=== PATIENT | male | born 1955 | race Caucasian/White ===

== ENCOUNTER 2023-08-14 13:44 | Inpatient (IN) | payer MEDICARE, SELFPAY ==
[2023-08-14] VITALS (21 sets, daily range): BP systolic 99–183; BP diastolic 69–125; PULSE 96–130; RESP 19–28; TEMP 36.3–36.4; O2SAT 75–100; BMI 17.6
--- NOTE | ~2023-08-14 | CT_ITS ---
EXAMINATION: CTA chest PE protocol DATE: 08/14/2023 16:38 INDICATION: Increasing shortness of breath TECHNIQUE: Computed tomography (CT) pulmonary angiogram of the chest was performed with 100 mL Omnipa que-350 intravenous contrast. Additional 3D reconstructions utilizing coronal maximum intensity proje ction (MIP) were performed. The dose-length product was 248.01 mGy-cm. COMPARISON: None FINDINGS: Excellent contrast opacification of the pulmonary arteries yielding diagnostic quality study with no pulmonary embolism. There is elevation of the left hemidiaphragm. Consolidation in the left lower lob e disproportionate to the mild associated volume loss, likely combination of atelectasis and pneumoni a. Additional consolidation also consistent with atelectasis or pneumonia in the dependent right lowe r lobe. Extensive tree-in-bud opacities throughout the bilateral lower lobes, in the right middle lob e and lingula and portions of the posterior inferior upper lobes consistent with additional pneumonia with endobronchial spread of disease. Small linear band of discoid atelectasis/scarring in the inter segment of the left upper lobe. 6 mm subpleural nodule at the left apex. No pleural effusion. Heart s ize is normal. No pericardial effusion. Thoracic aorta is normal in caliber with no dissection. Mild mediastinal and bilateral hilar lymphadenopathy most prominent in the subcarinal region which most li heber reactive.. 2 cm cyst at the upper pole of the left kidney. Mild thoracic spondylosis with bridgi ng osteophytes at multiple levels consistent with diffuse idiopathic skeletal hyperostosis (DISH). IMPRESSION: 1. No pulmonary embolism. 2. Consolidation in the left lower to lesser degree right lower lobes with more extensive tree-in-bud opacities throughout both lungs consistent with multifocal pneumonia. 3. Elevation of the left hemidiaphragm. 4. 6 mm indeterminate left apical nodule. Recommend 6-12 month follow-up low-dose noncontrast chest C T . 5. Mild mediastinal and bilateral hilar lymphadenopathy which is most likely reactive. Reviewed, dictated and finalized at location A. IMPRESSION: 1. No pulmonary embolism. 2. Consolidation in the left lower to lesser degree right lower lobes with more extensive tree-in-bud opacities throughout both lungs consistent with multifoc al pneumonia. 3. Elevation of the left hemidiaphragm. 4. 6 mm indeterminate left apical nodule. Recommend 6-12 month follow-up low-do se noncontrast chest CT . 5. Mild mediastinal and bilateral hilar lymphadenopathy which is most likely re active.
--- NOTE | ~2023-08-14 | XR_ITS ---
EXAMINATION: XR chest 2V DATE: 08/14/2023 14:25 INDICATION: Shortness of breath TECHNIQUE: frontal and lateral views of the chest were obtained. COMPARISON: None FINDINGS: , Air-fluid level within the stomach underlying the elevated left hemidiaphragm. There airspace opaci ties in the left mid to lower and right lower lung zones consistent with pneumonia and/or pulmonary e phuong. No pneumothorax or pleural effusion. Heart size is normal. Surgical clips at the left apex. Mil d thoracic spondylosis. IMPRESSION: 1. Opacities in the left mid to lower and right lower lung zone which could represent pulmonary edema or pneumonia. 2. Elevation the left hemidiaphragm. Reviewed, dictated and finalized at location A. IMPRESSION: 1. Opacities in the left mid to lower and right lower lung zone which could rep resent pulmonary edema or pneumonia. 2. Elevation the left hemidiaphragm.
--- NOTE | 2023-08-14 13:55 | ECG_ITS ---
Measurements Intervals [place] Rate: 122 P: 20 MD: 92 QRS: 24 QRSD: 89 T: 81 QT: 273 QTc: 390 Interpretive Statements SINUS TACHYCARDIA WITH SHORT MD INTERVAL WITH FREQUENT VENTRICULAR PREMATURE COMPLEXES NONSPECIFIC ST & T-WAVE ABNORMALITY NO PREVIOUS ECG AVAILABLE FOR COMPARISON Electronically Signed On 08-15-2023 13:19:48 CDT by [place] Gross M.D.
[2023-08-14 14:43] LABS: Alveolar/Arterial O2 Gradient 557.5 mmHg; Base Excess ABG 7.4 mEq/l (+/-2.0); Carboxyhemoglobin 0.6 % THb (0-2.0); Fractional Inspired Oxygen 100 %; HCO3 ABG 34.2 mEq/l (22.0-26.0); Methemoglobin ABG 0.4 %THb (0-1.5); Oxygen Content ABG 17.4 %vol (16.0-22.0); Oxygen Saturation ABG 97.2 % (95.0-100.0); Oxyhemoglobin 95.9 % THb (90.0-100.0); PCO2 ABG 58.2 mmHg (35.0-45.0); PO2 ABG 97.3 mmHg (80.0-100.0); PO2 FiO2 Ratio Arterial Blood 0.97 %; Reduced Hemoglobin 3.1 %THb (0-5.0); Total Hemoglobin 12.8 g/dL (12.0-18.0); pH ABG 7.387 (7.350-7.450)
[2023-08-14 14:46] LABS: Device NON-REBREATHER MASK; Site Drawn RIGHT BRACHIAL
--- NOTE | 2023-08-14 14:47 | ED.GENADULT ---
HPI - General Adult General Chief complaint: Shortness of Breath/Dyspnea Stated complaint: SOB, RSV+ Time Seen by Provider: 08/14/23 14:30 History of Present Illness HPI narrative: 67-year-old male presenting to the emergency department for evaluation of increased shortness of breath. Patient is currently at [facility] for RSV. Patient does have a history of smoking but quit in 2007. Over the last few days patient feels that his shortness of breath has worsened. Upon arrival emergency department patient was saturating at 75-96% on 15 L. patient was transitioned to BiPAP and did feel improved. Related Data Home Medications Medication Instructions Recorded Confirmed albuterol sulfate 90 mcg/actuation 2 puff inhalation Q4H PRN Wheezing 08/12/23 08/14/23 aerosol inhaler levothyroxine 112 mcg tablet 112 mcg PO DAILY 08/12/23 08/14/23 metformin 1,000 mg tablet 1,000 mg PO BID 08/12/23 08/14/23 simvastatin 40 mg tablet 40 mg PO DAILY 08/12/23 08/14/23 tadalafil 5 mg tablet 5 mg PO DAILY 08/14/23 08/14/23 Allergies Allergy/AdvReac Type Severity Reaction Status Date / Time No Known Allergies Allergy Verified 08/14/23 14:02 Review of Systems Review of Systems: All systems reviewed & are unremarkable except as noted in HPI and below PMFSH Past Medical History Medical History (Updated 08/15/23 @ 09:41 by Theron Willard MD) Anemia History of throat cancer Family History Family History (Updated 08/14/23 @ 19:56 by Prateek Abarca RN) Mother Breast cancer Father Lung cancer Sibling Breast cancer Social History Social History Smoking packs per day: 2 Smoking cigarettes per day: 40.0 Years smoked: 10 Smoking pack-years: 20.00 Smoking status: Former smoker Tobacco type: cigarettes Alcohol intake: never Substance use: never Substance use type: does not use Do You Feel Safe in your Home?: Yes Lack of Transportation: No Lack of Food: Never True Current Housing: I Have Housing Concerned About Future Housing: No Difficulty Paying Gas/Electric Bills: No Difficulty Paying for Meds: No Currently Unemployed: No Education: Master's Degree or Higher Difficulty w/ Childcare or Family Care: No Spiritual care concerns: No Exam Narrative: APPEARANCE: Well appearing, no pain, no distress, well-nourished. HEAD: normocephalic, atraumatic. EYES: PERRLA/EOMI, conjunctivae clear. NOSE: Normal no drainage EARS:TMS clear with good light reflex. THROAT: Pharynx clear, no exudate. NECK: Supple. No adenopathy, no masses. RESPIRATORY: Wheeze bilateral CARDIOVASCULAR: Regular rate and rhythm without murmurs rubs or gallops. ABDOMINAL: Soft, nontender, nondistended, normal bowel sounds MUSCULOSKELETAL: Moves all extremities. Strength/ROM intact, No edema, No calf tenderness. NEURO: Alert. Cranial nerves II through XII intact. Grossly intact SKIN: Warm, dry. Normal Color Course Vital Signs Vital signs: Vital Signs Temperature 97.5 F L 08/14/23 13:44 Pulse Rate 130 H 08/14/23 13:44 Respiratory Rate 28 H 08/14/23 13:44 Blood Pressure 176/125 H 08/14/23 13:44 Pulse Oximetry 75 L 08/14/23 13:44 Oxygen Delivery Room Air 08/14/23 13:44 Temperature 97.5 F L 08/15/23 11:48 Pulse Rate 105 H 08/15/23 14:41 Respiratory Rate 16 08/15/23 14:41 Blood Pressure 114/74 08/15/23 11:48 Pulse Oximetry 97 08/15/23 12:55 Oxygen Delivery Nasal Cannula 08/15/23 12:55 Oxygen Flow Rate 2 08/15/23 12:55 Fraction of Inspired Oxygen 50 08/14/23 20:00 Medical Decision Making [facility] Narrative Medical decision making narrative: 67-year-old female presenting to the emergency department for evaluation of worsening shortness of breath. On patient's ABG he has a pCO2 58.2. Patient will be placed on BiPAP. CTA PE study was ordered. CT showed no evidence of pulmonary embolism but did show multifoc
[2023-08-14 15:30] LABS: Hematocrit 37.1 % (42.0-52.0); Hemoglobin 11.6 g/dL (14.0-18.0); Mean Corpuscular HGB Conc 31.3 g/dl (32-36); Mean Corpuscular Volume 89.4 fl (80-100); Mean Platelet Volume 8.8 fl (7.4-10.4); Platelet Count Result 541 k/mm3 (150-375); Red Blood Count 4.15 M/mm3 (4.6-6.20); Red Cell Distribution Width 12.7 % (11.5-14.5); White Blood Count 12.6 K/mm3 (4.5-10.0)
[2023-08-14] MEDS: CEFEPIME 2 GM/NS 50 ML 2 GM/50 ML BAG IVPB ×2 (15:45→23:37)
[2023-08-14 15:49] LABS: Alanine Aminotransferase 14 U/L (6-50); Albumin Level 3.5 g/dL (3.5-5.1); Alkaline Phosphatase 70 U/L (38-126); Anion Gap 1 mmol/L (4-12); Aspartate Amino Transferase 29 U/L (17-59); Bilirubin,Total 0.3 mg/dL (0.2-1.3); Blood Urea Nitrogen 15 mg/dL (9-20); Calcium 9.6 mg/dL (8.4-10.2); Carbon Dioxide 36 mmol/L (22-30); Chloride 95 mmol/L (98-107); Estimated CRCL calculation 97 ml/min; Estimated Glomerular Filt Rate > 60; Glucose 196 mg/dL (65-110); Potassium 5.2 mmol/L (3.4-5.0); Sodium 132 mmol/L (137-145)
[2023-08-14 15:57] LABS: Band Neutrophils Percent 7 % (0-6); Lymphocytes Absolute Manual 0.12 K/mm3 (1.1-4.5); Monocytes Percent Manual 4 % (3-9); Neutrophils Absolute Manual 11.97 K/mm3 (1.3-6.7); Neutrophils Percent Manual 88 % (46-73); Nucleated Red Blood Cells 1 %; Platelet Estimate Increased (Adequate); Total Cells Counted 100
[2023-08-14 15:58] LABS: Hypochromasia 1+; Schistocytes None Seen
[2023-08-14] MEDS: VANCOMYCIN 1,500 MG/NS 500 ML 1,500 MG/500 ML BAG 250 MG IVPB (16:45)
[2023-08-14 16:51] LABS: MRSA (PCR) NOT DETECTED (NOT DETECTE)
[2023-08-14] MEDS: ALBUTEROL SULFATE NEB 2.5 MG/3 ML INH INHALATION (19:12)
--- NOTE | 2023-08-14 19:23 | PM.IMHP ---
H&P: HPI History of Present Illness Date/Time: 08/14/23 19:23 Chief Complaint: SOB Narrative: 67 y/o M presents here with SOB with PMH of CVA, throat cancer, sinus tachycardia, and hyperglycemia without diagnosis of diabetes. Patient presented here from [facility] for further evaluation of shortness of breath. Patient was admitted to [facility] 08/11 from [facility] for rehab after having acute hypoxic respiratory failure and severe septic shock due to RSV/aspiration pneumonia. Patient was admitted from 08/04-08/11. Patient reports that he has been short of breath since this diagnosis, however it has worsened over the last few days and then became severe today. Upon arrival to the emergency department, patient was saturating 75-96% on 15 L NRB. reports associated cough that has been dry. No fever, body aches, or chills. No chest pain. No increased fatigue or weakness. No hx of COPD or asthma. reports previous tobacco use, smoking cessation in 2007. Initial VS at presentation: 97.5? F, HR 130, RR 28, 75% on 15L NRB. Now on BiPAP. ED workup showed: WBC 12.6, Hgb 11.6, plt count 541, sodium 132, potassium 5.2, creatinine 0.5 with GFR of >60, glucose 196, and CO2 36. Initial ABG showed pH 7.387, pCO2 58.2, pO2 97.3, HCO3 34.2, O2 sat 97.2%. CXR showed opacities in the left mid to lower and right lower lung zones and elevation in the left hemidiaphragm. CTA of the chest showed no PE, consolidation the left lower to lesser degree right lower lobes with more extensive tree-in-bud opacities throughout both lungs consistent with multifocal pneumonia, elevation of left hemidiaphragm, 6 mm indeterminate left apical nodule, and mild mediastinal and bilateral hilar lymphadenopathy. Review of Systems Review of Systems: All systems reviewed & are unremarkable except as noted in HPI and below [facility] Family History Family History (Updated 08/14/23 @ 19:56 by Prateek Abarca RN) Mother Breast cancer Father Lung cancer Sibling Breast cancer Social History Social History Smoking status: Former smoker Alcohol intake: never Substance use: never Substance use type: does not use Do You Feel Safe in your Home?: Yes Lack of Transportation: No Lack of Food: Never True Current Housing: I Have Housing Concerned About Future Housing: No Difficulty Paying Gas/Electric Bills: No Difficulty Paying for Meds: No Currently Unemployed: No Education: Master's Degree or Higher Difficulty w/ Childcare or Family Care: No Spiritual care concerns: No Meds Home Medications and Allergies Home Medications Medication Instructions Recorded Confirmed Type albuterol sulfate 90 mcg/actuation 2 puff inhalation Q4H PRN Wheezing 08/12/23 08/14/23 History aerosol inhaler empagliflozin 25 mg tablet 25 mg PO DAILY 08/12/23 08/14/23 History (Jardiance) levothyroxine 112 mcg tablet 112 mcg PO DAILY 08/12/23 08/14/23 History metformin 1,000 mg tablet 1,000 mg PO BID 08/12/23 08/14/23 History simvastatin 40 mg tablet 40 mg PO DAILY 08/12/23 08/14/23 History tadalafil 5 mg tablet 5 mg PO DAILY 08/14/23 08/14/23 History Allergies Allergy/AdvReac Type Severity Reaction Status Date / Time No Known Allergies Allergy Verified 08/14/23 14:02 Vital Signs Vital Signs - 24 hr 08/14/23 13:44 08/14/23 13:48 08/14/23 14:00 Temperature 97.5 F L Pulse Rate 130 H Respiratory Rate 28 H Blood Pressure 176/125 H Pulse Oximetry 75 L 97 96 Oxygen Delivery Room Air Non-Rebreather Mask Mechanical Ventilation Oxygen Flow Rate 15 15 08/14/23 14:50 08/14/23 16:40 08/14/23 17:00 Temperature Pulse Rate 123 H 114 H 115 H Respiratory Rate 24 H 24 H 22 H Blood Pressure 130/78 Pulse Oximetry 95 97 98 Oxygen Delivery BiPAP BiPAP Oxygen Flow Rate 08/14/23 16:00 08/14/23 15:00 08/14/23 14:00 Temperature Pulse Rate 12
--- NOTE | 2023-08-14 19:27 | ADMGEN ---
This patient, Jose Maria Fierro, was admitted to IMU Room 200-01. Patient/family oriented to hospital policies and general routines including ID bracelet, bed and alarms, visiting hours, pain management, procedures, bathroom and other care routines, personal items, smoking policy, room service/diet, and visiting hours. Information on how to activate the Rapid Response Team has been discussed. Patient/Family are encouraged to report perceived risks to care and to ask questions if they do not understand what they are told or what they should do.
[2023-08-14] MEDS: IPRATROPIUM 0.5 MG/ALBUTEROL SULFATE 2.5 MG AMPUL.NEB 3 ML INHALATION (20:00)
[2023-08-14] MEDS: methylPREDNISolone SOD SUCC 125 MG VIAL IV PUSH (20:10)
[2023-08-14 20:49] LABS: Influenza A QL RT-PCR Negative (Negative); Influenza B QL RT-PCR Negative (Negative); RSV RNA, RT-PCR Positive (Negative); SARS-CoV-2 RNA PCR Negative (Negative)
[2023-08-14] MEDS: LACTATED RINGERS 1,000 ML 999 ML IV CONT ×2 (22:34→22:35)
[2023-08-14 22:39] LABS: Appearance Urine Clear (Clear); Bilirubin Urine Negative (Negative); Blood Urine Negative (Negative); Color Urine Yellow (Yellow); Glucose Urine UA Negative (Negative); Ketones Urine Negative (Negative); Leukocyte Esterase Ur Negative LEU/UL (Negative); Nitrate Urine Negative (Negative); Protein Urine Negative (Negative); Urobilinogen Urine 0.2 mg/dL (<2.0)
[2023-08-14 22:57] LABS: Add Urine Microscopic? NO; Specific Grav Ur 1.045 (1.001-1.035)
[2023-08-14 23:38] LABS: Base Excess ABG 4.6 mEq/l (+/-2.0); Device NON-INVASIVE VENT; Fractional Inspired Oxygen 50 %; HCO3 ABG 29.7 mEq/l (22.0-26.0); Non-Invasive Expiratory Pressure 6 CMH2O; Non-Invasive Inspiratory Pressure 12 CMH2O; Non-Invasive Vent Rate 14 /MIN; Oxygen Content ABG 15.2 %vol (16.0-22.0); Oxygen Saturation ABG 99.3 % (95.0-100.0); Oxyhemoglobin 97.8 % THb (90.0-100.0); PCO2 ABG 46.4 mmHg (35.0-45.0); PO2 ABG 180.3 mmHg (80.0-100.0); PO2 FiO2 Ratio Arterial Blood 3.61 %; Site Drawn RIGHT BRACHIAL; Total Hemoglobin 10.8 g/dL (12.0-18.0); pH ABG 7.424 (7.350-7.450)
[2023-08-15] VITALS (18 sets, daily range): BP systolic 108–119; BP diastolic 61–74; PULSE 91–109; RESP 16–23; TEMP 36.4–36.6; O2SAT 92–100
[2023-08-15] MEDS: IPRATROPIUM 0.5 MG/ALBUTEROL SULFATE 2.5 MG AMPUL.NEB 3 ML INHALATION ×4 (01:24→20:11)
[2023-08-15 03:59] LABS: Hematocrit 29.6 % (42.0-52.0); Hemoglobin 9.3 g/dL (14.0-18.0); Immature Granulocyte Absolute 0.02 K/mm3 (0.00-0.031); Immature Granulocyte Percent A 0.3 % (0-0.5); Lymphocytes Absolute Auto 0.33 K/mm3 (0.9-3.2); Lymphocytes Percent Auto 4.3 % (18.3-44.2); Mean Corpuscular HGB Conc 31.4 g/dl (32-36); Mean Corpuscular Hemoglobin 27.8 pg (26-34); Mean Corpuscular Volume 88.6 fl (80-100); Mean Platelet Volume 9.2 fl (7.4-10.4); Monocytes Absolute Auto 0.1 K/mm3 (0.1-0.6); Monocytes Percent Auto 0.8 % (2.6-8.5); Neutrophils Absolute Auto 7.3 K/mm3 (1.3-6.7); Neutrophils Percent Auto 94.6 % (45.5-73.1); Platelet Count Result 391 k/mm3 (150-375); Red Blood Count 3.34 M/mm3 (4.6-6.20); Red Cell Distribution Width 12.8 % (11.5-14.5); White Blood Count 7.7 K/mm3 (4.5-10.0)
[2023-08-15 04:08] LABS: Hemoglobin A1C 6.1 % (<5.7)
[2023-08-15 04:15] LABS: Alanine Aminotransferase 11 U/L (6-50); Albumin Level 2.9 g/dL (3.5-5.1); Alkaline Phosphatase 52 U/L (38-126); Anion Gap 0 mmol/L (4-12); Aspartate Amino Transferase 24 U/L (17-59); Bilirubin,Total 0.3 mg/dL (0.2-1.3); Blood Urea Nitrogen 13 mg/dL (9-20); Calcium 9.3 mg/dL (8.4-10.2); Carbon Dioxide 34 mmol/L (22-30); Chloride 98 mmol/L (98-107); Estimated CRCL calculation 92 ml/min; Estimated Glomerular Filt Rate > 60; Glucose 181 mg/dL (65-110); Potassium 4.6 mmol/L (3.4-5.0); Sodium 132 mmol/L (137-145)
[2023-08-15] MEDS: LEVOTHYROXINE SODIUM 112 MCG TABLET PO (05:54)
[2023-08-15] MEDS: CEFEPIME 2 GM/NS 50 ML 2 GM/50 ML BAG IVPB ×3 (09:23→23:25)
[2023-08-15] MEDS: SIMVASTATIN 20 MG TABLET 40 MG PO (09:24)
[2023-08-15] MEDS: PANTOPRAZOLE SODIUM IV 40 MG VIAL IV PUSH (09:24)
--- NOTE | 2023-08-15 09:38 | PM.IMPN ---
Progress Note: A&P Assessment and Plan (1) Multifocal pneumonia: Code(s): J18.9 - Pneumonia, unspecified organism Status: Acute Assessment and Plan: Likely due to RSV Continue cefepime pending blood cultures (2) RSV (respiratory syncytial virus infection): Code(s): B33.8 - Other specified viral diseases Status: Acute Assessment and Plan: Continue supportive care (3) Hyperglycemia: Code(s): R73.9 - Hyperglycemia, unspecified Status: Acute Assessment and Plan: Continue glycemic management (4) History of throat cancer: Code(s): Z85.819 - Personal history of malignant neoplasm of unspecified site of lip, oral cavity, and pharynx Status: Acute Assessment and Plan: Follow-up with PCP as outpatient (5) Anemia: Code(s): D64.9 - Anemia, unspecified Status: Acute Assessment and Plan: Normochromic and normocytic Suspect anemia of chronic disease Evaluate for nutritional deficiency and blood loss (6) Sepsis: Code(s): A41.9 - Sepsis, unspecified organism Status: Acute Assessment and Plan: Resolved 08/14 transfer to medical floor Subjective Date/time seen: 08/15/23 09:38 Interval history: Feels much better. No cough. No shortness of breath or chest pain. On oxygen. Does not wear home oxygen. No GI or complaints. No abnormal bleeding. No weakness or numbness or dizziness. Review of Systems Review of Systems: All systems reviewed & are unremarkable except as noted in HPI and below Exam Narrative: HEENT: PERRL, sclerae nonicteric, pharyngeal mucosa pink and intact NECK: No JVD CHEST: Scattered diffuse fine crackles. Normal effort. HEART: NL S1/S2, regular, no murmur ABDOMEN: BS+, soft, nontender, no mass, no bruits EXTREMITIES: No cyanosis, edema, or clubbing NEUROLOGIC: CN intact and symmetric to inspection. MUSCULOSKELETAL: Tone and strength symmetric. PSYCH: Alert. Oriented to person, place, and time. Objective Data Vital Signs Vital Signs: Vital Signs - 24 hr 08/14/23 13:44 08/14/23 13:48 08/14/23 14:00 Temperature 97.5 F L Pulse Rate 130 H Respiratory Rate 28 H Blood Pressure 176/125 H Pulse Oximetry 75 L 97 96 Oxygen Delivery Room Air Non-Rebreather Mask Mechanical Ventilation Oxygen Flow Rate 15 15 Fraction of Inspired Oxygen 08/14/23 14:50 08/14/23 16:40 08/14/23 17:00 Temperature Pulse Rate 123 H 114 H 115 H Respiratory Rate 24 H 24 H 22 H Blood Pressure 130/78 Pulse Oximetry 95 97 98 Oxygen Delivery BiPAP BiPAP Oxygen Flow Rate Fraction of Inspired Oxygen 08/14/23 16:00 08/14/23 15:00 08/14/23 14:00 Temperature Pulse Rate 121 H 121 H 124 H Respiratory Rate 20 22 H 22 H Blood Pressure 146/94 H 166/87 H 183/116 H Pulse Oximetry 96 94 97 Oxygen Delivery Oxygen Flow Rate Fraction of Inspired Oxygen 08/14/23 18:15 08/14/23 17:26 08/14/23 17:31 Temperature Pulse Rate 98 108 H 107 H Respiratory Rate 20 23 H 25 H Blood Pressure 103/74 99/72 L 114/86 Pulse Oximetry 99 99 99 Oxygen Delivery Oxygen Flow Rate Fraction of Inspired Oxygen 08/14/23 18:30 08/14/23 18:45 08/14/23 19:32 Temperature 97.4 F L Pulse Rate 96 101 H 104 H Respiratory Rate 19 20 24 H Blood Pressure 122/75 124/82 115/69 Pulse Oximetry 98 99 100 Oxygen Delivery Oxygen Flow Rate Fraction of Inspired Oxygen 08/14/23 19:10 08/14/23 19:12 08/14/23 19:20 Temperature Pulse Rate 99 99 101 H Respiratory Rate 25 H 25 H 25 H Blood Pressure Pulse Oximetry 100 Oxygen Delivery BiPAP Oxygen Flow Rate Fraction of Inspired Oxygen 08/14/23 20:00 08/14/23 20:00 08/14/23 22:00 Temperature Pulse Rate 104 H 106 H 102 H Respiratory Rate 24 H Blood Pressure Pulse Oximetry 100 Oxygen Delivery BiPAP Oxygen Flow Rate Fraction of Inspired Oxygen 50 08/14/23 23:47 08/15/23 00:00 0
[2023-08-15 12:03] LABS: Glucose Point of Care 152 mg/dl (65-105)
--- NOTE | 2023-08-15 12:09 | PC.NURSE ---
This patient, Jose Maria Fierro, was transferred to [[id number] ] on 08/15/23 at 1209. Personal belongings sent with patient. Report given to [Annamarie ALEJANDRA ]. Appropriate documentation sent with patient.
[2023-08-15 17:05] LABS: Glucose Point of Care 101 mg/dl (65-105)
[2023-08-15 20:29] LABS: Glucose Point of Care 134 mg/dl (65-105)
[2023-08-16] VITALS (14 sets, daily range): BP systolic 118–155; BP diastolic 57–82; PULSE 87–104; RESP 16–20; TEMP 36.8; O2SAT 93–96
[2023-08-16] MEDS: traZODone HCL 50 MG TABLET PO ×2 (00:29→20:41)
[2023-08-16] MEDS: IPRATROPIUM 0.5 MG/ALBUTEROL SULFATE 2.5 MG AMPUL.NEB 3 ML INHALATION ×4 (03:45→20:48)
[2023-08-16 05:08] LABS: Immature Reticulocyte Fraction 10.4 % (3.0-15.9); Reticulocyte Hemoglobin Conten 31.9 pg (28.2-36.6); Reticulocyte Percent 0.75 % (0.7-4.3); Reticulocytes Absolute 0.03 10^6/uL (0.02-0.10)
[2023-08-16 05:21] LABS: Iron < 10 ug/dL (49-181)
[2023-08-16 05:44] LABS: Percent Iron Saturation < 5 % (20-50)
[2023-08-16 06:23] LABS: Folic Acid 2.5 ng/mL (2.76->20)
[2023-08-16] MEDS: LEVOTHYROXINE SODIUM 112 MCG TABLET PO (06:41)
[2023-08-16 08:44] LABS: Glucose Point of Care 105 mg/dl (65-105)
[2023-08-16] MEDS: PANTOPRAZOLE SODIUM IV 40 MG VIAL IV PUSH (09:12)
[2023-08-16] MEDS: SIMVASTATIN 20 MG TABLET 40 MG PO (09:12)
[2023-08-16] MEDS: CEFEPIME 2 GM/NS 50 ML 2 GM/50 ML BAG IVPB ×2 (09:13→16:09)
[2023-08-16 14:44] LABS: Glucose Point of Care 134 mg/dl (65-105)
--- NOTE | 2023-08-16 16:41 | PM.IMPN ---
Progress Note: A&P Assessment and Plan (1) Multifocal pneumonia: Code(s): J18.9 - Pneumonia, unspecified organism Status: Acute Assessment and Plan: Likely due to RSV Continue cefepime pending blood cultures and procalcitonin (2) RSV (respiratory syncytial virus infection): Code(s): B33.8 - Other specified viral diseases Status: Acute Assessment and Plan: Improving Continue supportive care (3) Hyperglycemia: Code(s): R73.9 - Hyperglycemia, unspecified Status: Acute Assessment and Plan: Continue glycemic monitoring A1c pending (4) History of throat cancer: Code(s): Z85.819 - Personal history of malignant neoplasm of unspecified site of lip, oral cavity, and pharynx Status: Acute Assessment and Plan: Follow-up with PCP as outpatient (5) Anemia: Code(s): D64.9 - Anemia, unspecified Status: Acute Assessment and Plan: Normochromic and normocytic Iron, %sat very low, TIBC low, Folic acid low Stool for occult blood pending 08/15 started iron, folic acid supplements (6) Sepsis: Code(s): A41.9 - Sepsis, unspecified organism Status: Acute Assessment and Plan: Resolved 08/14 transfer to medical floor Subjective Date/time seen: 08/16/23 16:41 Interval history: Less dyspneic. Cough with brown to clear sputum. Tolerating diet. Review of Systems Review of Systems: All systems reviewed & are unremarkable except as noted in HPI and below Exam Narrative: HEENT: PERRL, sclerae nonicteric, pharyngeal mucosa pink and intact NECK: No JVD CHEST: Minimal scattered fine crackles. Normal effort. HEART: NL S1/S2, regular, no murmur ABDOMEN: BS+, soft, nontender, no mass, no bruits EXTREMITIES: No cyanosis, edema, or clubbing NEUROLOGIC: CN intact and symmetric to inspection. MUSCULOSKELETAL: Tone and strength symmetric. PSYCH: Alert. Oriented to person, place, and time. Objective Data Vital Signs Vital Signs: Vital Signs - 24 hr 08/15/23 20:20 08/15/23 20:11 08/15/23 20:11 Temperature Pulse Rate 100 92 Respiratory Rate 18 18 Blood Pressure Pulse Oximetry 92 Oxygen Delivery Nasal Cannula Oxygen Flow Rate 2 08/15/23 20:00 08/16/23 00:00 08/16/23 03:45 Temperature 98.3 F Pulse Rate 93 87 Respiratory Rate 18 18 Blood Pressure 121/57 L Pulse Oximetry 92 93 Oxygen Delivery Nasal Cannula Oxygen Flow Rate 2 08/16/23 03:55 08/16/23 08:00 08/16/23 08:00 Temperature Pulse Rate 89 87 87 Respiratory Rate 18 18 18 Blood Pressure Pulse Oximetry 94 Oxygen Delivery Nasal Cannula Oxygen Flow Rate 2 08/16/23 08:10 08/16/23 08:48 08/16/23 09:11 Temperature Pulse Rate 88 Respiratory Rate 18 Blood Pressure Pulse Oximetry 94 Oxygen Delivery Nasal Cannula Nasal Cannula Oxygen Flow Rate 1 2 08/16/23 13:41 08/16/23 13:59 08/16/23 14:11 Temperature 98.2 F Pulse Rate 104 H 100 97 Respiratory Rate 20 16 16 Blood Pressure 155/82 H Pulse Oximetry 94 Oxygen Delivery Oxygen Flow Rate Intake/Output Intake/Output: Intake & Output 08/13/23 08/14/23 08/15/23 08/16/23 23:59 23:59 23:59 23:59 Intake Total 2550 1990 770 Output Total 500 1075 774 Balance 2050 915 -4 Meds/Results Medications: Active Medications Generic Name Dose Route Start Last Admin Trade Name Freq PRN Reason Stop Dose Admin Albuterol/Ipratropium 3 ml 08/14/23 20:00 08/16/23 13:58 Ipratropium 0.5 Mg/Albuterol Sulfate 2.5 Mg Ampul.Neb 3 Ml INHALATION 3 ml Q6HRT JAUN Administration Cefepime HCl 2 gm in 50 mls @ 100 mls/hr 08/15/23 00:00 08/16/23 16:09 Maxipime 2 Gm/Ns 50 Ml IVPB 100 mls/hr Q8H JAUN Administration Levothyroxine Sodium 112 mcg 08/15/23 06:30 08/16/23 06:41 Levothyroxine Sodium 112 Mcg Tablet PO 112 mcg DAILY@0630 JAUN Administration Pantoprazole Sodium 40 mg 08/15/23 09:00 08/16/23 09
[2023-08-16 17:15] LABS: Glucose Point of Care 134 mg/dl (65-105)
[2023-08-16 20:41] LABS: Glucose Point of Care 136 mg/dl (65-105)
[2023-08-17] VITALS (9 sets, daily range): BP systolic 123–146; BP diastolic 61–82; PULSE 90–115; RESP 16–18; TEMP 36.3–36.6; O2SAT 93–96; BMI 16.0
[2023-08-17] MEDS: CEFEPIME 2 GM/NS 50 ML 2 GM/50 ML BAG IVPB ×2 (01:03→09:51)
[2023-08-17] MEDS: IPRATROPIUM 0.5 MG/ALBUTEROL SULFATE 2.5 MG AMPUL.NEB 3 ML INHALATION ×3 (02:30→13:39)
[2023-08-17 05:44] LABS: Hematocrit 32.1 % (42.0-52.0); Hemoglobin 9.9 g/dL (14.0-18.0); Mean Corpuscular HGB Conc 30.8 g/dl (32-36); Mean Corpuscular Volume 90.7 fl (80-100); Mean Platelet Volume 8.8 fl (7.4-10.4); Platelet Count Result 384 k/mm3 (150-375); Red Blood Count 3.54 M/mm3 (4.6-6.20); Red Cell Distribution Width 12.8 % (11.5-14.5); White Blood Count 9.3 K/mm3 (4.5-10.0)
[2023-08-17 05:50] LABS: Anion Gap -2 mmol/L (4-12); Blood Urea Nitrogen 8 mg/dL (9-20); Calcium 8.6 mg/dL (8.4-10.2); Carbon Dioxide 38 mmol/L (22-30); Chloride 98 mmol/L (98-107); Estimated CRCL calculation 82 ml/min; Estimated Glomerular Filt Rate > 60; Glucose 110 mg/dL (65-110); Potassium 4.2 mmol/L (3.4-5.0); Sodium 134 mmol/L (137-145)
[2023-08-17 05:53] LABS: Hemoglobin A1C 6.1 % (<5.7)
[2023-08-17 06:19] LABS: Procalcitonin 0.1 ng/mL
[2023-08-17] MEDS: LEVOTHYROXINE SODIUM 112 MCG TABLET PO (06:29)
[2023-08-17 08:15] LABS: Glucose Point of Care 100 mg/dl (65-105)
[2023-08-17] MEDS: FERROUS SULFATE 325 MG TABLET DR PO (09:53)
[2023-08-17] MEDS: SIMVASTATIN 20 MG TABLET 40 MG PO (09:53)
[2023-08-17] MEDS: FOLIC ACID 1 MG TABLET PO (09:53)
[2023-08-17] MEDS: PANTOPRAZOLE SODIUM IV 40 MG VIAL IV PUSH (09:54)
[2023-08-17 12:09] LABS: Glucose Point of Care 167 mg/dl (65-105)
[2023-08-17 21:44] LABS: Pneumococcal Antigen Urine Not Detected (Not Detected)
--- NOTE | 2023-08-17 22:16 | P.DS_ITS ---
DS: Admitting Diagnosis Discharge Date 08/17/23 Admitting Diagnosis RSV, acute hypoxic respiratory failure DS: Discharge Diagnosis Discharge Diagnosis Plan supportive care for RSV, no ABx required DS: Summary Hospital Course Reason for hospitalization: Dyspnea Hospital Course: Patient is a 67 y/o male with PMHx throat cancer, h/o CVA, sinus tachycardia who presents from [facility] with SOB. He recently was treated at [facility] for septic shock from RSV and aspiration pneumonia from 08/04-08/11, subsequently went to [facility] for rehab. He then developed worsening dyspnea and requireted 15L NRB prompting him to come to [facility] for further treatment. He was treated with supportive care for RSV.? He was on a 3 days of cefepime but had no bacterial findings on cultures. Also with the negative procalcitonin, there was no further requirements to treat with ABx. He was weaned to 2L O2 by [place]. He continued to work with physical therapy. He was hospitalized from 08/13-08/16. At time of discharge his labs are stable, vitals stable, his is stable to discharge back to [facility] for further therapy. He will f/u with PCP in 1 week. He needs f.u CT scan for the left apical lung nodule. He understands and agrees with the plan. Status at Discharge Cognitive/behavioral status at discharge: baseline Time Spent with Patient Time attestation: Total time spent providing and/or coordinating discharge services: 40 min Exam Narrative: - GENERAL: Pleasant frail shelley in no ac lumbee distress. - EYES: EOMI. Anicteric. - HENT: Moist mucous membranes. - LUNGS: Clear to auscultation bilateral ly, no wheezing, rhonchi, or rales. breathing comfortably on 2L O2 by NC - CARDIOVASCULAR: Regular rate and rhyth m. No murmur. No JVD. - ABDOMEN: Soft, non-tender and non-dist ended. No palpable masses. - EXTREMITIES: No edema. Peripheral puls es 2+. Non-tender. - NEUROLOGIC: No focal neurological defi cits. CN II-XII grossly intact. - PSYCHIATRIC: Awake, Alert and oriented x 3. Appropriate mood and affect. - SKIN: No rashes or lesions. Warm. - LYMPH: No cervical lymphadenopathy. DS: Data Data Completed and Pending Labs on day of discharge: Labs from last 24 hours 08/17/23 08/17/2308/16/24 12:06 08:12 05:29 WBC 9.3 RBC 3.54 L Hgb 9.9 L Hct 32.1 L MCV 90.7 MCH 28.0 MCHC 30.8 L RDW 12.8 Plt Count 384 H MPV 8.8 Sodium 134 L Potassium 4.2 Chloride 98 Carbon Dioxide 38 H Anion Gap -2 L BUN 8 L D Creatinine 0.50 L Estim Creat Clear Calc 82 Estimated GFR > 60 Glucose 110 POC Capillary Glucose 167 H 100 Hemoglobin A1c 6.1 H Calcium 8.6 Procalcitonin 0.1 Urine Pneumococcal Ag 08/14/23 22:33 WBC RBC Hgb Hct MCV MCH MCHC
--- NOTE | 2023-08-17 22:16 | PM.DS ---
DS: Admitting Diagnosis Discharge Date 08/17/23 Admitting Diagnosis RSV, acute hypoxic respiratory failure DS: Discharge Diagnosis Discharge Diagnosis Plan supportive care for RSV, no ABx required DS: Summary Hospital Course Reason for hospitalization: Dyspnea Hospital Course: Patient is a 67 y/o male with PMHx throat cancer, h/o CVA, sinus tachycardia who presents from [facility] with SOB. He recently was treated at [facility] for septic shock from RSV and aspiration pneumonia from 08/04-08/11, subsequently went to [facility] for rehab. He then developed worsening dyspnea and requireted 15L NRB prompting him to come to [facility] for further treatment. He was treated with supportive care for RSV.? He was on a 3 days of cefepime but had no bacterial findings on cultures. Also with the negative procalcitonin, there was no further requirements to treat with ABx. He was weaned to 2L O2 by UT. He continued to work with physical therapy. He was hospitalized from 08/13-08/16. At time of discharge his labs are stable, vitals stable, his is stable to discharge back to [facility] for further therapy. He will f/u with PCP in 1 week. He needs f.u CT scan for the left apical lung nodule. He understands and agrees with the plan. Status at Discharge Cognitive/behavioral status at discharge: baseline Time Spent with Patient Time attestation: Total time spent providing and/or coordinating discharge services: 40 min Exam Narrative: - GENERAL: Pleasant frail shelley in no acute distress. - EYES: EOMI. Anicteric. - HENT: Moist mucous membranes. - LUNGS: Clear to auscultation bilaterally, no wheezing, rhonchi, or rales. breathing comfortably on 2L O2 by NC - CARDIOVASCULAR: Regular rate and rhythm. No murmur. No JVD. - ABDOMEN: Soft, non-tender and non-distended. No palpable masses. - EXTREMITIES: No edema. Peripheral pulses 2+. Non-tender. - NEUROLOGIC: No focal neurological deficits. CN II-XII grossly intact. - PSYCHIATRIC: Awake, Alert and oriented x 3. Appropriate mood and affect. - SKIN: No rashes or lesions. Warm. - LYMPH: No cervical lymphadenopathy. DS: Data Data Completed and Pending Labs on day of discharge: Labs from last 24 hours 08/17/23 08/17/23 08/17/23 12:06 08:12 05:29 WBC 9.3 RBC 3.54 L Hgb 9.9 L Hct 32.1 L MCV 90.7 MCH 28.0 MCHC 30.8 L RDW 12.8 Plt Count 384 H MPV 8.8 Sodium 134 L Potassium 4.2 Chloride 98 Carbon Dioxide 38 H Anion Gap -2 L BUN 8 L D Creatinine 0.50 L Estim Creat Clear Calc 82 Estimated GFR > 60 Glucose 110 POC Capillary Glucose 167 H 100 Hemoglobin A1c 6.1 H Calcium 8.6 Procalcitonin 0.1 Urine Pneumococcal Ag 08/14/23 22:33 WBC RBC Hgb Hct MCV MCH MCHC RDW Plt Count MPV Sodium Potassium Chloride Carbon Dioxide Anion Gap BUN Creatinine Estim Creat Clear Calc Estimated GFR Glucose POC Capillary Glucose Hemoglobin A1c Calcium Procalcitonin Urine Pneumococcal Ag Not detected Preliminary micro results at discharge 08/15/23 09:41 Sputum Culture - Preliminary Sputum 08/14/23 15:34 Blood Culture - Preliminary Blood 08/14/23 15:32 Blood Culture - Preliminary Blood Imaging Radiologist's impression: CTA chest 08/14/23 IMPRESSION: 1. No pulmonary embolism. 2. Consolidation in the left lower to lesser degree right lower lobes with more extensive tree-in-bud opacities throughout both lungs consistent with multifocal pneumonia. 3. Elevation of the left hemidiaphragm. 4. 6 mm indeterminate left apical nodule. Recommend 6-12 month follow-up low-dose noncontrast chest CT . 5. Mild mediastinal and bilateral hilar lymphadenopathy which is most likely reactive. Discharge Plan Discharge Attending physician on discharge: Dann Webb Discharging Clinician: Dann Webb Anticipated Discharge Date/Time: 08/17/23 11:05 Patient Dis
[2023-08-18 03:28] LABS: Legionella pneumophila Ag Ur Not Detected (Not Detected)
[2023-08-18 14:31] LABS: Mycoplasma IgM Antibody Titer 91 U/mL (<770)
== END 2023-08-17 15:25 | DRG 193 ==
LOC: ANHED 14:57 → ANHIMU 18:16 → ANH2MED 08-15 11:58
PROVIDERS: Emergency Medicine; Internal Medicine; Student in an Organized Health Care Education/Training Program; Admitting Provider Internal Medicine; Emergency Provider Emergency Medicine; Visit Provider Student in an Organized Health Care Education/Training Program
DX: J12.1 Respiratory syncytial virus pneumonia (principal); J96.01 Acute respiratory failure with hypoxia; Z20.822 Contact with and (suspected) exposure to COVID-19; R73.9 Hyperglycemia, unspecified; D64.9 Anemia, unspecified; D63.8 Anemia in other chronic diseases classified elsewhere; Z85.818 Personal history of malignant neoplasm of other sites of lip, oral cavity, and pharynx; Z87.891 Personal history of nicotine dependence; Z86.73 Personal history of transient ischemic attack (TIA), and cerebral infarction without residual deficits
CPT/HCPCS: 36415; 36600; 71046; 71275; 80048; 80053; 81003; 82375; 82607; 82746; 82805; 82948; 83036; 83050; 83540; 83550; 83605; 84145; 84443; 85025; 85027; 85046; 86140; 86738; 87040; 87070; 87205; 87449; 87637; 87641; 87899; 93005; 94640; 96365; 96367; 97110; 97116; 97161; 97165; 97530; 99285; A9270; C9113; J0692; J2919; J3370; J7120; Q9967

== ENCOUNTER 2023-08-22 19:46 | Inpatient (IN) | payer MEDICARE, SELFPAY ==
[2023-08-22] VITALS (25 sets, daily range): BP systolic 91–183; BP diastolic 52–119; PULSE 96–127; RESP 16–36; TEMP 36.6–36.8; O2SAT 95–100; BMI 16.6
--- NOTE | ~2023-08-22 | CT_ITS ---
Clinical Indication: Hypoxia CT Scan of the Chest with Contrast: Technique: Contiguous sections were acquired throughout the chest after intravenous administration of 100 cc of Omnipaque 350. Dose reduction technique was used on this scan by utilizing automated expos ure control and iterative reconstruction technique. The dose-length product (DLP) was 168.21 mGy-cm. COMPARISON: 08/14/2023 Findings: There is no evidence of any significant mediastinal, hilar or axillary lymphadenopathy. There is no f illing defect in the pulmonary arterial tree to suggest pulmonary embolus. There is no evidence of ao rtic dissection or aneurysm. There is no evidence of pleural or pericardial effusion. Very small left apical pneumothorax present. There is dense lobar consolidation left lower lobe with volume loss, compatible with a combination of pneumonia and atelectasis. There are diffuse tree-in-bu d opacities throughout the lungs, certainly more extensive in the right upper lobe as compared to sunitha or exam in particular. Irregular nodular consolidation or density in the left upper lobe is slightly more prominent, possibly due to slice selection, measuring 2 cm in diameter (axial image 48). Images through the upper abdomen reveal calcified gallstones. Impression: No evidence of pulmonary embolus, aortic dissection, or aortic aneurysm. Very small left apical pneumothorax. Dense, lobar consolidation of the left lower lobe with volume loss, compatible with combination of pn eumonia and atelectasis. Diffuse tree-in-bud opacities throughout the remainder of the lungs, worsened from prior exam, compat ible diffuse small airways infectious process. 2 cm irregular consolidation left upper lobe is slightly more prominent, possibly due to plane of jeana ging. This could reflect focal more confluent pneumonia, however neoplasm not completely excluded. Reviewed, dictated and finalized at [facility]. Impression: No evidence of pulmonary embolus, aortic dissection, or aortic aneurysm. Very small left apical pneumothorax. Dense, lobar consolidation of the left lower lobe with volume loss, compatible with combination of pneumonia and atelectasis. Diffuse tree-in-bud opacities throughout the remainder of the lungs, worsened f rom prior exam, compatible diffuse small airways infectious process. 2 cm irregular consolidation left upper lobe is slightly more prominent, possib ly due to plane of imaging. This could reflect focal more confluent pneumonia, however neoplasm not completely excluded.
--- NOTE | ~2023-08-22 | XR_ITS ---
EXAMINATION: XR chest 2V DATE: 08/27/2023 18:37 INDICATION: Shortness of breath. TECHNIQUE: Frontal and lateral views of the chest were obtained. COMPARISON: Chest single view 08/27/23, chest CT 08/27/23 FINDINGS: There are widespread nodules in the lungs bilaterally. There are airspace opacities with vo lume loss involving left lower lobe. No pleural effusion or pneumothorax. The heart size is normal. T here is a small left pneumothorax. IMPRESSION: 1. Stable small left pneumothorax. 2. Multifocal pneumonia. 3. Left lung lower lobe collapse. Reviewed, dictated and finalized at location E.
--- NOTE | ~2023-08-22 | XR_ITS ---
EXAMINATION: XR chest 1V portable DATE: 08/27/2023 13:04 INDICATION: Hypoxia TECHNIQUE: frontal view of the chest was obtained. COMPARISON: Chest radiograph dated 08/24/2023 FINDINGS: Again seen is a diffuse increased interstitial and groundglass opacities throughout both lungs relati vely sparing the apices of a few peripheral David B-lines at the lateral right lower lung zone most consistent with mild pulmonary edema. Unchanged elevation of the left hemidiaphragm. No pneumothorax or definitive pleural effusion. Heart size is normal. Couple surgical clips project over the left ape x. IMPRESSION: 1. No significant change in bilateral diffuse interstitial and groundglass opacities relatively spari ng the apices which could represent pulmonary edema and/or pneumonia. Reviewed, dictated and finalized at location A. IMPRESSION: 1. No significant change in bilateral diffuse interstitial and groundglass opac ities relatively sparing the apices which could represent pulmonary edema and/o r pneumonia.
--- NOTE | ~2023-08-22 | XR_ITS ---
EXAMINATION: XR chest 2V DATE: 08/22/2023 20:17 INDICATION: Dyspnea. TECHNIQUE: Frontal and lateral views of the chest were obtained. COMPARISON: Chest 2 views 08/14/2023, chest CT 08/14/2023 FINDINGS: Again seen is elevation of left hemidiaphragm. There are nodules in the mid and lower lung zones. There are airspace opacities at left lung base. No pleural effusion or pneumothorax. The heart size is normal. There are surgical clips in left neck. IMPRESSION: 1. Stable nodules in the mid and lower lung zones and airspace opacities at left lung base, consisten t with pneumonia. Reviewed, dictated and finalized at location E. IMPRESSION: 1. Stable nodules in the mid and lower lung zones and airspace opacities at lef t lung base, consistent with pneumonia.
--- NOTE | ~2023-08-22 | XR_ITS ---
Clinical Indication: Pneumonia AP and lateral views of the chest: Comparison: 08/22/2023 Findings: Hazy bilateral lower lobe airspace disease is mildly improved from prior exam.. Cardiomedi astinal silhouette is within normal limits. Bones and soft tissues are unremarkable. Impression: Improving bilateral lower lobe pneumonia versus pulmonary edema. Reviewed, dictated and finalized at [facility]. Impression: Improving bilateral lower lobe pneumonia versus pulmonary edema.
--- NOTE | 2023-08-22 19:39 | ED.GENADULT ---
HPI - General Adult General Chief complaint: Shortness of Breath/Dyspnea Stated complaint: sob History of Present Illness HPI narrative: 67-year-old male presents from a rehab facility because of progressively increasing oxygen requirements. Patient was diagnosed with RSV on the which is 16 days prior to arrival. He was sent to the rehab facility because of oxygen needs which have been progressively worsening. Patient required 25 L of high-flow nasal cannula to maintain O2 saturation above 90%. He denies fever or chest pain. Related Data Home Medications Medication Instructions Recorded Confirmed albuterol sulfate 90 mcg/actuation 2 puff inhalation Q4H PRN Wheezing 08/12/23 08/17/23 aerosol inhaler levothyroxine 112 mcg tablet 112 mcg PO DAILY 08/12/23 08/17/23 metformin 1,000 mg tablet 1,000 mg PO BID 08/12/23 08/17/23 simvastatin 40 mg tablet 40 mg PO DAILY 08/12/23 08/17/23 tadalafil 5 mg tablet 5 mg PO DAILY 08/14/23 08/17/23 Allergies Allergy/AdvReac Type Severity Reaction Status Date / Time No Known Allergies Allergy Verified 08/22/23 19:53 Review of Systems Review of Systems: CONSTITUTIONAL: Denies fever, chills, or sweats. EYES: Denies visual changes, redness, or discharge. ENT: Denies rhinorrhea, congestion, sore throat, or otalgia. CARDIOVASCULAR: Denies chest pain, palpitations, or edema. RESPIRATORY: Denies cough or dyspnea. GASTROINTESTINAL: Denies abdominal pain, nausea, vomiting, or diarrhea. GENITOURINARY: Denies dysuria or hematuria. SKIN: Denies rash or itching. MUSCULOSKELETAL: Denies back pain, joint pain, or myalgia. NEUROLOGIC: Denies headache, numbness, or weakness. PSYCHIATRIC: Denies anxiety or depression. [facility] Past Medical History Medical History (Updated 08/22/23 @ 21:48 by Matthew Aparicio DO) Anemia Former smoker History of throat cancer Protein calorie malnutrition Family History Family History Mother Breast cancer Father Lung cancer Sibling Breast cancer Social History Social History Smoking packs per day: 2 Smoking cigarettes per day: 40.0 Years smoked: 10 Smoking pack-years: 20.00 Smoking status: Former smoker Tobacco type: cigarettes Alcohol intake: never Substance use: never Substance use type: does not use Do You Feel Safe in your Home?: Yes Lack of Transportation: No Lack of Food: Never True Current Housing: I Have Housing Concerned About Future Housing: No Difficulty Paying Gas/Electric Bills: No Difficulty Paying for Meds: No Currently Unemployed: No Education: Master's Degree or Higher Difficulty w/ Childcare or Family Care: No Living arrangements: alone Occupation/Education: occupation Gender identity (if verbalized by the patient): Male Sexual Orientation (if Verbalized by the Patient): Straight or Heterosexual Spiritual care concerns: No Exam Narrative: GENERAL: Well-appearing, well-nourished, and in no acute distress. HEAD: Normocephalic, atraumatic. EYES: PERRLA and EOMI. ENT: Nares clear, no rhinorrhea or epistaxis. Mucous membranes moist. NECK: Supple. CHEST: Rales and rhonchi in all webber, tachypnea. HEART: Regular rate and rhythm. No murmur heard. Normal peripheral pulses. ABDOMEN: Soft, nontender, nondistended, normal active bowel sounds. EXTREMITIES: Normal range of motion. No edema. SKIN: Warm, dry, no rash. NEURO: No focal deficits. Alert and oriented x3. PSYCH: Normal mood and affect. Course Vital Signs Vital signs: Vital Signs Temperature 97.9 F 08/22/23 19:45 Pulse Rate 121 H 08/22/23 19:45 Respiratory Rate 31 H 08/22/23 19:45 Blood Pressure 183/84 H 08/22/23 19:45 Pulse Oximetry 99 08/22/23 19:45 Oxygen Delivery High Flow Therapy with Na 08/22/23 19:45 Oxygen Flow Rate 15 08/22/23 19:45 Temperature 97.9 F 08/22/23 1
--- NOTE | 2023-08-22 19:56 | ECG_ITS ---
SEE SCANNED COPY FOR CONFIRMED REPORT MTDD
[2023-08-22 20:18] LABS: Basophils Percent Auto 0.2 % (0.2-1.2); Eosinophils Percent Auto 0.2 % (0-4.4); Hematocrit 38.1 % (42.0-52.0); Hemoglobin 11.8 g/dL (14.0-18.0); Immature Granulocyte Absolute 0.05 K/mm3 (0.00-0.031); Immature Granulocyte Percent A 0.4 % (0-0.5); Lymphocytes Absolute Auto 0.44 K/mm3 (0.9-3.2); Lymphocytes Percent Auto 3.5 % (18.3-44.2); Mean Corpuscular Hemoglobin 27.7 pg (26-34); Mean Corpuscular Volume 89.4 fl (80-100); Monocytes Absolute Auto 0.9 K/mm3 (0.1-0.6); Monocytes Percent Auto 7.2 % (2.6-8.5); Neutrophils Absolute Auto 11.2 K/mm3 (1.3-6.7); Neutrophils Percent Auto 88.5 % (45.5-73.1); Platelet Count Result 634 k/mm3 (150-375); Red Blood Count 4.26 M/mm3 (4.6-6.20); Red Cell Distribution Width 13.2 % (11.5-14.5); White Blood Count 12.7 K/mm3 (4.5-10.0)
[2023-08-22 20:33] LABS: Anion Gap 2 mmol/L (4-12); Blood Urea Nitrogen 19 mg/dL (9-20); Calcium 9.8 mg/dL (8.4-10.2); Carbon Dioxide 37 mmol/L (22-30); Chloride 95 mmol/L (98-107); Estimated CRCL calculation 102 ml/min; Estimated Glomerular Filt Rate > 60; Glucose 201 mg/dL (65-110); Sodium 134 mmol/L (137-145)
[2023-08-22 20:44] LABS: Troponin I < 0.012 ng/mL (0.000-0.034)
--- NOTE | 2023-08-22 20:44 | PC.NURSE ---
ED respiratory in room with patient to do breathing treatment and switch patient to more comfortable high flow NC.
[2023-08-22] MEDS: IPRATROPIUM 0.5 MG/ALBUTEROL SULFATE 2.5 MG AMPUL.NEB 3 ML INHALATION (20:46)
--- NOTE | 2023-08-22 21:09 | PC.NURSE ---
Patient being switched to BIPAP by ED respiratory.
[2023-08-22 21:58] LABS: Alveolar/Arterial O2 Gradient 288.8 mmHg; Base Excess ABG 6.9 mEq/l (+/-2.0); Carboxyhemoglobin 0.5 % THb (0-2.0); Fractional Inspired Oxygen 60 %; Methemoglobin ABG 0.2 %THb (0-1.5); Oxygen Content ABG 16.3 %vol (16.0-22.0); Oxygen Saturation ABG 93.7 % (95.0-100.0); Oxyhemoglobin 92.6 % THb (90.0-100.0); PO2 ABG 72.3 mmHg (80.0-100.0); PO2 FiO2 Ratio Arterial Blood 1.21 %; Reduced Hemoglobin 6.7 %THb (0-5.0); Total Hemoglobin 12.5 g/dL (12.0-18.0); pH ABG 7.367 (7.350-7.450)
[2023-08-22 22:02] LABS: Device BIPAP; Modified Allen's Test Pass; PCO2 ABG 60.6 mmHg (35.0-45.0); Site Drawn RIGHT RADIAL
[2023-08-22 22:03] LABS: Expiratory Pressure 8 cmH2O; Inspiratory Pressure 16 cmH2O
[2023-08-22 22:10] LABS: Procalcitonin 0.1 ng/mL
[2023-08-22] MEDS: SODIUM CHLORIDE 0.9% IV 1,000 ML 999 ML IV CONT (22:13)
[2023-08-22] MEDS: dexAMETHasone SOD PHOS INJ 10 MG/ML 1 ML VIAL IV PUSH (22:14)
[2023-08-22] MEDS: cefTRIAXone 2 GM/NS 100 ML 2 GM/100 ML BAG IVPB (22:16)
[2023-08-22 22:27] LABS: Lactic Acid Reflex 1.6 mmol/L (0.7-2.0)
--- NOTE | 2023-08-22 23:16 | PC.NURSE ---
Waiting for ED respiratory to transport patient to IMU on bipap.
--- NOTE | 2023-08-22 23:49 | ADMGEN ---
This patient, Jose Maria Fierro, was admitted to IMU Room 214-01. Patient/family oriented to hospital policies and general routines including ID bracelet, bed and alarms, visiting hours, pain management, procedures, bathroom and other care routines, personal items, smoking policy, room service/diet, and visiting hours. Information on how to activate the Rapid Response Team has been discussed. Patient/Family are encouraged to report perceived risks to care and to ask questions if they do not understand what they are told or what they should do.
--- NOTE | 2023-08-22 23:54 | PM.IMHP ---
H&P: HPI History of Present Illness Date/Time: 08/22/23 22:00 Chief Complaint: Shortness of breath Narrative: 67-year-old male with a past medical history of RSV 08/05/2023 throat cancer, prostate cancer, BPH, chronic hypercapnic respiratory (denies formal diagnosis of COPD), former heavy tobacco use, chronic protein malnutrition who presented back to the hospital from [facility] due to worsening respiratory failure. The patient had been admitted to [facility] at the end of July 10 to RSV the pneumonia causing acute respiratory failure. He was discharged to acute rehab left [facility] 11 of August. He then was brought to our hospital on the 13 of August due to increasing oxygen requirements and required BiPAP therapy transiently. He was initially treated for multifocal pneumonia noted on chest x-ray and CTA but blood and sputum cultures, urine Legionella, urine pneumococcal antigen and mycoplasma titer were negative and antibiotics (cefepime and vanc) were discontinued after 3 days. He was discharged back to the rehab facility on 2 L nasal cannula on 08/17/2023. The patient reports that acutely on the morning of the he had worsening of his shortness of breath. He was titrated up to 25 L high-flow nasal cannula at rehab and was still having difficulty maintaining sats of 90%. He denied any increased cough, congestion, chest pain or fever. On initial presentation to the ER patient's systolic blood pressures were mildly low in the 90s. However patient's blood pressures widely fluctuated as high as 237/109 and back down into 90s throughout his ER visit. His blood pressures have normalized since arriving to the IMU. Nursing staff confirm med rec with acute rehab facility. Patient was reportedly started on 3.125 mg of metoprolol at the rehab facility. Nursing staff been cutting the medication into 1/8th of tablets to administer. Patient was not on beta-sade prior to recent hospitalizations. Review of Systems Review of Systems: 12 systems were reviewed with pertinent positives and negatives per HPI. Except as documented in the HPI, all other systems were reviewed and are negative. However review of systems somewhat limited as patient is on the BiPAP which is making communication difficult. [facility] Past Medical History Medical History (Updated 08/23/23 @ 02:23 by Zulema Parra DO) Anemia Chronic hypercapnic respiratory failure Former smoker History of throat cancer Hyperlipidemia Protein calorie malnutrition Surgical History Surgical History (Updated 08/23/23 @ 02:14 by Zulema Parra DO) History of radical neck dissection Family History Family History Mother Breast cancer Father Lung cancer Sibling Breast cancer Social History Social History (Updated 08/23/23 @ 02:18 by Zulema Parra DO) Social History: The patient reports that he is and had 2 children. Prior to his hospitalization in July of 2023 the patient lives alone and was independent activities of daily. He is a former [employer] of [facility]. He used to smoke up to 2 packs of cigarettes per day but quit smoking in 2007. He denies any significant alcohol or drug use. Code status: DNR/DNI (per patient request) Surrogate decision maker: Alcides Fierro (brother) Smoking packs per day: 2 Smoking cigarettes per day: 40.0 Years smoked: 10 Smoking pack-years: 20.00 Smoking status: Former smoker Tobacco type: cigarettes Alcohol intake: never Substance use: never Substance use type: does not use Do You Feel Safe in your Home?: Yes Lack of Transportation: No Lack of Food: Never True Current Housing: I Have Housing Concerned About Future Housing: No Difficulty Paying Gas/Electric Bills: No Difficulty Paying for Meds: No Currently Unemployed: No Education: Master's Degree or Higher Difficulty w/ Childc
[2023-08-23] VITALS (30 sets, daily range): BP systolic 96–140; BP diastolic 64–94; PULSE 71–125; RESP 16–28; TEMP 36.4–36.9; O2SAT 94–99
[2023-08-23] MEDS: IPRATROPIUM BR 0.02% INH SOLN 0.5 MG/2.5 ML VIAL INHALATION ×4 (02:40→20:24)
[2023-08-23] MEDS: LEVALBUTEROL NEB 1.25 MG/3 ML INHALATION ×4 (02:41→20:24)
[2023-08-23] MEDS: LEVOTHYROXINE SODIUM 112 MCG TABLET PO (06:06)
[2023-08-23] MEDS: methylPREDNISolone SOD SUCC 40 MG VIAL IV PUSH ×3 (06:07→21:14)
[2023-08-23 08:01] LABS: Glucose Point of Care 152 mg/dl (65-105)
[2023-08-23] MEDS: FLUTICASONE/UMECLIDIN/VILANTER 100-62.5-25 MCG ELLIPTA 1 PUFF INHALATION (08:27)
[2023-08-23] MEDS: FOLIC ACID 1 MG TABLET PO (08:34)
[2023-08-23] MEDS: metFORMIN HCL 500 MG TABLET 1000 MG PO ×2 (08:35→16:53)
[2023-08-23] MEDS: guaiFENesin 12 HR 600 MG TABCR PO ×2 (08:35→21:14)
[2023-08-23] MEDS: ATORVASTATIN 40 MG TABLET PO (08:35)
[2023-08-23] MEDS: ENOXAPARIN 40 MG/0.4 ML SYRINGE SUB-Q (08:36)
--- NOTE | 2023-08-23 09:37 | PM.IMPN ---
Progress Note: A&P Assessment and Plan (1) Acute hypoxic on chronic hypercapnic respiratory failure: Code(s): J96.01 - Acute respiratory failure with hypoxia; J96.12 - Chronic respiratory failure with hypercapnia Status: Acute Assessment and Plan: Will continue with BiPAP support. Continue steroid and IV antibiotics. (2) Pneumonia: Code(s): J18.9 - Pneumonia, unspecified organism Status: Acute Assessment and Plan: Continue with IV antibiotics, repeat chest x-ray in the morning (3) Protein calorie malnutrition: Qualifiers: Protein-calorie malnutrition severity: severe Qualified Code(s): E43 - Unspecified severe protein-calorie malnutrition Code(s): E46 - Unspecified protein-calorie malnutrition Status: Acute Assessment and Plan: Encourage increased protein intake (4) Hyperglycemia: Code(s): R73.9 - Hyperglycemia, unspecified Status: Acute Assessment and Plan: Stable on current medications, will continue current treat (5) Hypothyroidism: Qualifiers: Hypothyroidism type: unspecified Qualified Code(s): E03.9 - Hypothyroidism, unspecified Code(s): E03.9 - Hypothyroidism, unspecified Status: Acute Assessment and Plan: Stable on current medications, will continue current treat Plan Patient has what I suspect is chronic hypercarbic respiratory failure with his prior history of smoking but has now an acute on chronic hypoxic hypercarbic respiratory failure. Patient denies known history of COPD but given his recent viral illness this may have uncovered some underlying chronic lung disease previously unknown. The patient's symptoms developed despite being discharged on prednisone following his recent hospitalization. Patient does have a mildly elevated white count compared to prior hospital stay. He still afebrile. Chest x-ray which was personally reviewed and interpreted is unchanged from prior. Patient did have multifocal pneumonia noted on prior CT scan CT scan was not repeated. Given patient is afebrile and no change in x-ray I suspect the leukocytosis is due to acute stress response with the degree of patient's distress. Will repeat CBC in a.m.. If leukocytosis worsens or patient develops fever will place patient back on antibiotic therapy. In the ER patient did receive 1 dose of Rocephin. He did not receive the oral azithromycin. Patient did meet SIRS criteria with tachycardia, leukocytosis and tachypnea. Blood cultures are pending. Will continue scheduled nebulizer treatments. Patient received Decadron x1 in the ER. Will place patient on Solu-Medrol 40 mg IV q.8 hours. Given the patient's recurrent respiratory symptoms may benefit from pulmonology consult if not improving. Will continue BiPAP. Patient's tidal volumes have been ranging between 400-600. Settings are 16/8 and 60 % FiO2. ABG after BiPAP demonstrated pH of 7.36 pCO2 of 60 PO2 of 72 in bicarb of 34 with a sat of 93. Although the patient's pH is compensated S pH is lower than during his last hospitalization in his pCO2 is higher I suspect the patient was in more acute hypercapnic failure prior to BiPAP placement. Patient has having variable blood pressures. Will hold off on place me she on hypertensives at this time. The patient's unusual dose of metoprolol will not be continued. Patient does have severe protein calorie malnutrition. Will consult dietitian. Patient is hyperglycemic recent A1c was 6.1. Hyperglycemia likely due to recent steroid use. Will place patient on low-dose sliding scale insulin with Accu-Cheks a.c. HS. Will resume patient's home levothyroxine. Code status DNR Subjective Date/time seen: 08/23/23 09:37 Patient was seen during the morning rounds today. Patient is still requiring BiPAP Mild shortness of breath. No chest pain. No abdominal pain, nausea, no vomiting. Mood stable Review of Systems Review of
[2023-08-23] MEDS: AZITHROMYCIN 250 MG TABLET 500 MG PO (10:35)
[2023-08-23 11:50] LABS: Glucose Point of Care 197 mg/dl (65-105)
[2023-08-23] MEDS: FERROUS SULFATE 325 MG TABLET DR PO (12:03)
[2023-08-23 16:38] LABS: Glucose Point of Care 189 mg/dl (65-105)
[2023-08-23 20:29] LABS: Glucose Point of Care 205 mg/dl (65-105)
[2023-08-23] MEDS: MELATONIN 3 MG TABLET PO (21:14)
[2023-08-24] VITALS (35 sets, daily range): BP systolic 113–149; BP diastolic 65–92; PULSE 94–123; RESP 14–32; TEMP 36.1–37.7; O2SAT 91–99; BMI 16.2
[2023-08-24] MEDS: IPRATROPIUM BR 0.02% INH SOLN 0.5 MG/2.5 ML VIAL INHALATION ×4 (02:43→20:32)
[2023-08-24] MEDS: LEVALBUTEROL NEB 1.25 MG/3 ML INHALATION ×4 (02:43→20:32)
[2023-08-24 04:18] LABS: Hematocrit 35.1 % (42.0-52.0); Hemoglobin 10.7 g/dL (14.0-18.0); Mean Corpuscular HGB Conc 30.5 g/dl (32-36); Mean Corpuscular Hemoglobin 27.6 pg (26-34); Mean Corpuscular Volume 90.5 fl (80-100); Platelet Count Result 438 k/mm3 (150-375); Red Blood Count 3.88 M/mm3 (4.6-6.20); Red Cell Distribution Width 13.2 % (11.5-14.5); White Blood Count 7.3 K/mm3 (4.5-10.0)
[2023-08-24 04:35] LABS: Alanine Aminotransferase 12 U/L (6-50); Albumin Level 3.3 g/dL (3.5-5.1); Alkaline Phosphatase 84 U/L (38-126); Anion Gap 3 mmol/L (4-12); Aspartate Amino Transferase 17 U/L (17-59); Bilirubin,Total 0.4 mg/dL (0.2-1.3); Blood Urea Nitrogen 21 mg/dL (9-20); Calcium 10.2 mg/dL (8.4-10.2); Carbon Dioxide 37 mmol/L (22-30); Chloride 98 mmol/L (98-107); Estimated CRCL calculation 72 ml/min; Estimated Glomerular Filt Rate > 60; Glucose 173 mg/dL (65-110); Potassium 4.6 mmol/L (3.4-5.0); Sodium 138 mmol/L (137-145)
[2023-08-24] MEDS: LEVOTHYROXINE SODIUM 112 MCG TABLET PO (05:53)
[2023-08-24] MEDS: methylPREDNISolone SOD SUCC 40 MG VIAL IV PUSH (05:53)
[2023-08-24 06:11] LABS: Alveolar/Arterial O2 Gradient 133.6 mmHg; Fractional Inspired Oxygen 40 %; HCO3 ABG 35.8 mEq/l (22.0-26.0); Oxygen Content ABG 16.8 %vol (16.0-22.0); Oxyhemoglobin 95.8 % THb (90.0-100.0); PCO2 ABG 53.6 mmHg (35.0-45.0); PO2 FiO2 Ratio Arterial Blood 2.25 %; Total Hemoglobin 12.4 g/dL (12.0-18.0); pH ABG 7.443 (7.350-7.450)
[2023-08-24 06:12] LABS: Site Drawn RIGHT RADIAL
[2023-08-24 06:13] LABS: Device NON-INVASIVE VENT; Non-Invasive Expiratory Pressure 8 CMH2O; Non-Invasive Inspiratory Pressure 16 CMH2O; Non-Invasive Vent Rate 20 /MIN
[2023-08-24 08:17] LABS: Glucose Point of Care 159 mg/dl (65-105)
[2023-08-24] MEDS: FLUTICASONE/UMECLIDIN/VILANTER 100-62.5-25 MCG ELLIPTA 1 PUFF INHALATION (08:22)
[2023-08-24] MEDS: FOLIC ACID 1 MG TABLET PO (08:44)
[2023-08-24] MEDS: guaiFENesin 12 HR 600 MG TABCR PO ×2 (08:44→21:04)
[2023-08-24] MEDS: metFORMIN HCL 500 MG TABLET 1000 MG PO ×2 (08:44→17:30)
[2023-08-24] MEDS: ATORVASTATIN 40 MG TABLET PO (08:44)
[2023-08-24] MEDS: AZITHROMYCIN 250 MG TABLET PO (08:44)
[2023-08-24] MEDS: ENOXAPARIN 40 MG/0.4 ML SYRINGE SUB-Q (08:45)
--- NOTE | 2023-08-24 11:16 | PM.IMPN ---
Progress Note: A&P Assessment and Plan (1) Acute hypoxic on chronic hypercapnic respiratory failure: Code(s): J96.01 - Acute respiratory failure with hypoxia; J96.12 - Chronic respiratory failure with hypercapnia Status: Acute (2) Pneumonia: Code(s): J18.9 - Pneumonia, unspecified organism Status: Acute (3) Protein calorie malnutrition: Qualifiers: Protein-calorie malnutrition severity: severe Qualified Code(s): E43 - Unspecified severe protein-calorie malnutrition Code(s): E46 - Unspecified protein-calorie malnutrition Status: Acute (4) Hyperglycemia: Code(s): R73.9 - Hyperglycemia, unspecified Status: Acute (5) Hypothyroidism: Qualifiers: Hypothyroidism type: unspecified Qualified Code(s): E03.9 - Hypothyroidism, unspecified Code(s): E03.9 - Hypothyroidism, unspecified Status: Acute Plan This is a 67 presented from rehab facility due to progressively increasing oxygen requirement he was diagnosed with RSV on August 04 which is 16 days prior to arrival. He was sent to the rehab facility from outside hospital where he was treated for this RSV infection. On presentation to the ER he was tachycardic in 120s required high-flow oxygen via nasal cannula at 15 L to maintain oxygen saturation. EKG showed sinus tachycardia chest x-ray showed stable nodules in the mid and lower lung zones and airspace opacities of the left lung base consistent with pneumonia. Patient was in respiratory distress and hence was placed on BiPAP for respiratory support on presentation. Lab work revealed leukocytosis at 12.7 hemoglobin of 11.8. Platelet counts of 634 renal function were normal. Had closest noted in has metabolic profile. Troponin was negative at less than 0.012. He was also hypertensive. ABG showed 7.36/60/22/34. Noting chronic hypercapnia. Patient has been started on treatment for COPD exacerbation with steroid scheduled nebulizers antibiotics. Repeat ABG 7.44/53/90/35, has since improved. Will taper off BiPAP. Leukocytosis has since resolved. Recent CTA chest 08/14/2023 with multifocal pneumonia noted. Patient has been started on ceftriaxone and azithromycin. Procalcitonin has been 0.1. Nasal MRSA swab was negative on 08/14/2023, Legionella negative pneumococcal negative mycoplasma was negative. Will switch to oral prednisone History of Fall without injury Type 2 diabetes Chronic anemia Recent RSV infection History of throat cancer History of prostate cancer BPH No formal diagnosis COPD Former heavy tobacco use Protein calorie mild nutrition Hyperlipidemia Hypertension Hypothyroidism DVT prophylaxis Lovenox Code status DNR Subjective Date/time seen: 08/24/23 11:16 Interval history: No overnight events. Used his BiPAP overnight. ABG reviewed. Discussed the nursing staff. Feeling better. His oxygen requirements down to 4 L. no oxygen requirement at home prior to the admission. Review of Systems Review of Systems: All systems reviewed & are unremarkable except as noted in HPI and below Exam Narrative: GENERAL: Well-appearing, thin built, and in no acute distress. HEAD: Normocephalic, atraumatic. EYES: PERRLA and EOMI. ENT: Nares clear, no rhinorrhea or epistaxis.? Mucous membranes moist. NECK: Supple. CHEST:? Coarse breath sound bilaterally rhonchi not in respiratory distress HEART: Regular rate and rhythm.? No murmur heard.? Normal peripheral pulses. ABDOMEN: Soft, nontender, nondistended, normal active bowel sounds. EXTREMITIES: Normal range of motion.? No edema. SKIN: Warm, dry, no rash. NEURO: No focal deficits.? Alert and oriented x3. PSYCH: Normal mood and affect. Objective Data Vital Signs Vital Signs: Vital Signs - 24 hr 08/23/23 11:20 08/23/23 11:46 08/23/23 12:00 Temperature 98.4 F Pulse Rate 115 H 125 H Respiratory Rate 18 Blood Pressure 110/71 Pulse Oximetry 94 96 Oxygen Delivery Hig
[2023-08-24 11:58] LABS: Glucose Point of Care 188 mg/dl (65-105)
[2023-08-24] MEDS: METOPROLOL TARTRATE 6.25 MG TABLET PO ×2 (12:52→21:05)
[2023-08-24] MEDS: FERROUS SULFATE 325 MG TABLET DR PO (12:52)
[2023-08-24 16:29] LABS: Glucose Point of Care 178 mg/dl (65-105)
[2023-08-24] MEDS: predniSONE 20 MG TABLET 40 MG PO (17:31)
[2023-08-24 20:40] LABS: Glucose Point of Care 178 mg/dl (65-105)
[2023-08-24] MEDS: MELATONIN 3 MG TABLET PO (21:04)
[2023-08-25] VITALS (27 sets, daily range): BP systolic 124–152; BP diastolic 72–99; PULSE 90–117; RESP 16–29; TEMP 36.2–36.8; O2SAT 90–98
[2023-08-25] MEDS: IPRATROPIUM BR 0.02% INH SOLN 0.5 MG/2.5 ML VIAL INHALATION ×4 (01:38→21:26)
[2023-08-25] MEDS: LEVALBUTEROL NEB 1.25 MG/3 ML INHALATION ×4 (01:38→21:26)
[2023-08-25 04:34] LABS: Basophils Percent Auto 0.1 % (0.2-1.2); Hematocrit 35.9 % (42.0-52.0); Hemoglobin 10.9 g/dL (14.0-18.0); Immature Granulocyte Absolute 0.03 K/mm3 (0.00-0.031); Immature Granulocyte Percent A 0.3 % (0-0.5); Lymphocytes Absolute Auto 0.59 K/mm3 (0.9-3.2); Lymphocytes Percent Auto 5.7 % (18.3-44.2); Mean Corpuscular HGB Conc 30.4 g/dl (32-36); Mean Corpuscular Hemoglobin 27.7 pg (26-34); Mean Corpuscular Volume 91.1 fl (80-100); Mean Platelet Volume 9.1 fl (7.4-10.4); Monocytes Absolute Auto 0.7 K/mm3 (0.1-0.6); Monocytes Percent Auto 6.7 % (2.6-8.5); Neutrophils Percent Auto 87.2 % (45.5-73.1); Platelet Count Result 491 k/mm3 (150-375); Red Blood Count 3.94 M/mm3 (4.6-6.20); Red Cell Distribution Width 13.2 % (11.5-14.5); White Blood Count 10.3 K/mm3 (4.5-10.0)
[2023-08-25 04:45] LABS: Alanine Aminotransferase 13 U/L (6-50); Albumin Level 3.4 g/dL (3.5-5.1); Alkaline Phosphatase 80 U/L (38-126); Anion Gap 1 mmol/L (4-12); Aspartate Amino Transferase 18 U/L (17-59); Bilirubin,Total 0.3 mg/dL (0.2-1.3); Blood Urea Nitrogen 22 mg/dL (9-20); Carbon Dioxide 39 mmol/L (22-30); Chloride 98 mmol/L (98-107); Estimated CRCL calculation 85 ml/min; Estimated Glomerular Filt Rate > 60; Glucose 164 mg/dL (65-110); Magnesium 2.2 mg/dL (1.6-2.3); Potassium 4.7 mmol/L (3.4-5.0); Sodium 138 mmol/L (137-145)
[2023-08-25] MEDS: LEVOTHYROXINE SODIUM 112 MCG TABLET PO (05:48)
[2023-08-25] MEDS: FLUTICASONE/UMECLIDIN/VILANTER 100-62.5-25 MCG ELLIPTA 1 PUFF INHALATION (07:30)
[2023-08-25] MEDS: guaiFENesin 12 HR 600 MG TABCR PO ×2 (08:55→20:35)
[2023-08-25] MEDS: METOPROLOL TARTRATE 6.25 MG TABLET PO ×2 (08:55→20:35)
[2023-08-25] MEDS: metFORMIN HCL 500 MG TABLET 1000 MG PO ×2 (08:55→17:39)
[2023-08-25] MEDS: ENOXAPARIN 40 MG/0.4 ML SYRINGE SUB-Q (08:55)
[2023-08-25] MEDS: AZITHROMYCIN 250 MG TABLET PO (08:56)
[2023-08-25] MEDS: ATORVASTATIN 40 MG TABLET PO (08:56)
[2023-08-25] MEDS: predniSONE 20 MG TABLET 40 MG PO ×2 (08:56→17:39)
[2023-08-25] MEDS: FOLIC ACID 1 MG TABLET PO (08:56)
[2023-08-25 09:01] LABS: Glucose Point of Care 122 mg/dl (65-105)
[2023-08-25 11:59] LABS: Glucose Point of Care 128 mg/dl (65-105)
--- NOTE | 2023-08-25 15:36 | P.PNIM_ITS ---
Progress Note: A&P Assessment and Plan (1) Acute hypoxic on chronic hypercapnic respiratory failure: Code(s): J96.01 - Acute respiratory failure with hypoxia; J96.12 - Chronic respiratory failure with hypercapnia Status: Acute Assessment and Plan: 08/25/2023: * Likely secondary to pneumonia * Patient had increased shortness of breath on the morning of the and was started on 25 L up to flow at the rehab center however he had difficulty maintaining his oxygen sat greater than 90% and was brought in for further evaluation. * Patient started on BiPAP * Continue steroids * Continue DuoNeb * Blood cultures obtained and are pending * Patient was started on azithromycin and Rocephin * Chest x-ray showing pneumonia initially, chest x-ray from yesterday showing improvement * White blood cell count initially 12.7, now down to 10.3 * Continue IMU status and cardiac monitoring * Continue guaifenesin and Flonase * Patient currently on 2 L nasal cannula with SpO2 greater than 95% * Continue to wean oxygen for a saturation greater than 92% * Changed BiPAP setting to 12/6 with a backup rate of 12 and 40% as he is not been able to sleep very well with the pressure setting of 16/8. We will see if he is more comfortable tonight on the settings. (2) Pneumonia: Code(s): J18.9 - Pneumonia, unspecified organism Status: Acute Assessment and Plan: 08/25/2023: * Chest x-ray showing pneumonia * See above plan of care (3) Protein calorie malnutrition: Qualifiers: Protein-calorie malnutrition severity: severe Qualified Code(s): E43 - Unspecified severe protein-calorie malnutrition Code(s): E46 - Unspecified protein-calorie malnutrition Status: Acute Assessment and Plan: 08/25/2023: * BMI 22.9, 72.4 kg * Dietitian consult * Severe protein calorie malnutrition with severe subcutaneous fat loss and severe muscle wasting * Glucerna shakes ordered t.i.d. (4) Hyperglycemia: Code(s): R73.9 - Hyperglycemia, unspecified Status: Acute Assessment and Plan: 08/25/2023: * Blood sugars ranging 122-164 * Hemoglobin A1c 6.1 * Bump in blood sugars could be due to use of prednisone * Metformin 1000 mg b.i.d. was ordered (5) Hypothyroidism: Qualifiers: Hypothyroidism type: unspecified Qualified Code(s): E03.9 - Hypothyroidism, unspecified Code(s): E03.9 - Hypothyroidism, unspecified Status: Acute Assessment and Plan: 08/25/2023: * Synthroid ordered Time Spent With Patient Time with patient: Greater than 35 minutes Subjective Date/time seen: 08/25/23 15:36 Interval history: This is a 67-year-old male who presented to the hospital on 08/22/2023 with complaints of shortness of breath. Workup in hospital included a chest x-ray which showed stable nodules in 1 mid and lower lung zones and airspace opacities at the left lung base consistent with pneumonia. Chest x-ray yesterday shown improvement of bilateral lower lobe pneumonia. Initial labs showed a white blood cell count of 12.7, hemoglobin 11.8, platelet count 634, sodium 134, chloride 95, blood glucose ranging 152-201, initial lactate was 1.6, trop was negative, procalcitonin 0.1. Patient was started on azithromycin and Rocephin. Of note patient was recently admitted and discharged from [facility] on July 10 after having RSV and pneumonia causing acute respiratory failure. He was discharged on August 11 to acute rehab for his left knee. He was noted to have increased oxygen requirements which sent him back to o
--- NOTE | 2023-08-25 15:36 | PM.IMPN ---
Progress Note: A&P Assessment and Plan (1) Acute hypoxic on chronic hypercapnic respiratory failure: Code(s): J96.01 - Acute respiratory failure with hypoxia; J96.12 - Chronic respiratory failure with hypercapnia Status: Acute Assessment and Plan: 08/25/2023: Likely secondary to pneumonia Patient had increased shortness of breath on the morning of the and was started on 25 L up to flow at the rehab center however he had difficulty maintaining his oxygen sat greater than 90% and was brought in for further evaluation. Patient started on BiPAP Continue steroids Continue DuoNeb Blood cultures obtained and are pending Patient was started on azithromycin and Rocephin Chest x-ray showing pneumonia initially, chest x-ray from yesterday showing improvement White blood cell count initially 12.7, now down to 10.3 Continue IMU status and cardiac monitoring Continue guaifenesin and Flonase Patient currently on 2 L nasal cannula with SpO2 greater than 95% Continue to wean oxygen for a saturation greater than 92% Changed BiPAP setting to 12/6 with a backup rate of 12 and 40% as he is not been able to sleep very well with the pressure setting of 16/8. We will see if he is more comfortable tonight on the settings. (2) Pneumonia: Code(s): J18.9 - Pneumonia, unspecified organism Status: Acute Assessment and Plan: 08/25/2023: Chest x-ray showing pneumonia See above plan of care (3) Protein calorie malnutrition: Qualifiers: Protein-calorie malnutrition severity: severe Qualified Code(s): E43 - Unspecified severe protein-calorie malnutrition Code(s): E46 - Unspecified protein-calorie malnutrition Status: Acute Assessment and Plan: 08/25/2023: BMI 22.9, 72.4 kg Dietitian consult Severe protein calorie malnutrition with severe subcutaneous fat loss and severe muscle wasting Glucerna shakes ordered t.i.d. (4) Hyperglycemia: Code(s): R73.9 - Hyperglycemia, unspecified Status: Acute Assessment and Plan: 08/25/2023: Blood sugars ranging 122-164 Hemoglobin A1c 6.1 Bump in blood sugars could be due to use of prednisone Metformin 1000 mg b.i.d. was ordered (5) Hypothyroidism: Qualifiers: Hypothyroidism type: unspecified Qualified Code(s): E03.9 - Hypothyroidism, unspecified Code(s): E03.9 - Hypothyroidism, unspecified Status: Acute Assessment and Plan: 08/25/2023: Synthroid ordered Time Spent With Patient Time with patient: Greater than 35 minutes Subjective Date/time seen: 08/25/23 15:36 Interval history: This is a 67-year-old male who presented to the hospital on 08/22/2023 with complaints of shortness of breath. Workup in hospital included a chest x-ray which showed stable nodules in 1 mid and lower lung zones and airspace opacities at the left lung base consistent with pneumonia. Chest x-ray yesterday shown improvement of bilateral lower lobe pneumonia. Initial labs showed a white blood cell count of 12.7, hemoglobin 11.8, platelet count 634, sodium 134, chloride 95, blood glucose ranging 152-201, initial lactate was 1.6, trop was negative, procalcitonin 0.1. Patient was started on azithromycin and Rocephin. Of note patient was recently admitted and discharged from [facility] on July 10 after having RSV and pneumonia causing acute respiratory failure. He was discharged on August 11 to acute rehab for his left knee. He was noted to have increased oxygen requirements which sent him back to our facility and he required BiPAP therapy at that time. He was treated for multifocal pneumonia and was on cefepime and vancomycin which was discontinued after 3 days. He was discharged back to the rehab facility on 2 L nasal cannula. He then reported shortness of breath and worsening dyspnea on the bringing him back to the hospital. He was put on 25 L OptiFlow at the rehab but was havin
[2023-08-25 16:18] LABS: Glucose Point of Care 197 mg/dl (65-105)
[2023-08-25] MEDS: FERROUS SULFATE 325 MG TABLET DR PO (17:38)
[2023-08-25] MEDS: MELATONIN 3 MG TABLET PO (20:35)
[2023-08-25 20:46] LABS: Glucose Point of Care 191 mg/dl (65-105)
[2023-08-26] VITALS (31 sets, daily range): BP systolic 104–126; BP diastolic 60–94; PULSE 88–124; RESP 20–26; TEMP 36.3–36.6; O2SAT 85–97
--- NOTE | 2023-08-26 | ECHO_ITS ---
Patient Info Name: Jose Maria Fierro Age: 67 years : 1955 Gender: Male Ht: 70 in Wt: 112 lbs BSA: 1.56 m2 HR: 113 bpm BP: 122 / 87 mmHg Technical Quality: Poor Exam Date: 08/26/2023 2:27 PM Exam Location: Echo Lab Exam Room: 214 Patient Status: Inpatient Admit Date: 08/22/2023 Staff Ordering Physician: Madison Lynch APRN Worship Leader: Kami Katz RDCS Attending Provider: Zulema Parra DO Referring Physician: Syed LAWRENCE; Exam Type: CA echo doppler color flow Study Info Indications - sob tachycardia Complete two-dimensional, color flow and Doppler transthoracic echocardiogram is performed. Summary 1. Complete two-dimensional, color flow and Doppler transthoracic echocardiogram is performed. 2. Technically suboptimal study due to poor sonographic images. 3. Left ventricular chamber dimension is normal. 4. Left ventricular systolic function is hyperdynamic, estimated at >70%. 5. The left ventricular diastolic function is grade I diastolic dysfunction. 6. Left atrial chamber dimension is moderately enlarged. 7. Right atrial chamber dimension is mildly enlarged. 8. There is mild aortic valve sclerosis. 9. There is mild to moderate tricuspid valve regurgitation. 10. Mild pulmonary hypertension, estimated pulmonary arterial systolic pressure is 46 mmHg. Left Ventricle Technically suboptimal study due to poor sonographic images. Tissue doppler is not performed. Left ventricular chamber dimension is normal. Left ventricular systolic function is hyperdynamic, estimated at >70%. The left ventricular diastolic function is grade I diastolic dysfunction. Right Ventricle Right ventricular chamber dimension is normal. Right ventricular systolic function is normal. Left Atria Left atrial chamber dimension is moderately enlarged. Right Atria Right atrial chamber dimension is mildly enlarged. Aortic Valve The aortic valve is trileaflet. There is mild aortic valve sclerosis. There is no aortic valve stenosis. There is no aortic valve regurgitation. Pulmonic Valve The pulmonic valve is not well visualized. Mitral Valve There is no mitral valve stenosis. There is no mitral valve regurgitation. Tricuspid Valve There is mild to moderate tricuspid valve regurgitation. Mild pulmonary hypertension, estimated pulmonary arterial systolic pressure is 46 mmHg. Pericardium/Pleural There is no pericardial effusion. Inferior Vena Cava Normal inferior vena cava with >50% collapse upon inspiration consistent with normal right atrial pressure, 5 mmHg. Aorta The aortic root size at the sinus of Valsalva is normal. Left Ventricular Outflow Tract Name Value Normal LVOT 2D LVOT Diameter 2.1 cm Pulmonic Valve Name Value Normal PV Doppler PV Peak Gradient 5 mmHg Tricuspid Valve Name Value Normal TV Regurgitation Doppler
[2023-08-26] MEDS: IPRATROPIUM BR 0.02% INH SOLN 0.5 MG/2.5 ML VIAL INHALATION ×4 (02:33→20:03)
[2023-08-26] MEDS: LEVALBUTEROL NEB 1.25 MG/3 ML INHALATION ×4 (02:33→20:03)
[2023-08-26] MEDS: LEVOTHYROXINE SODIUM 112 MCG TABLET PO (06:29)
[2023-08-26] MEDS: FLUTICASONE/UMECLIDIN/VILANTER 100-62.5-25 MCG ELLIPTA 1 PUFF INHALATION (07:53)
[2023-08-26 07:54] LABS: Basophils Absolute Auto 0.1 K/mm3 (0.0-0.1); Basophils Percent Auto 0.4 % (0.2-1.2); Hematocrit 38.6 % (42.0-52.0); Hemoglobin 11.7 g/dL (14.0-18.0); Immature Granulocyte Absolute 0.07 K/mm3 (0.00-0.031); Immature Granulocyte Percent A 0.5 % (0-0.5); Lymphocytes Absolute Auto 0.65 K/mm3 (0.9-3.2); Lymphocytes Percent Auto 4.2 % (18.3-44.2); Mean Corpuscular HGB Conc 30.3 g/dl (32-36); Mean Corpuscular Hemoglobin 27.9 pg (26-34); Mean Corpuscular Volume 92.1 fl (80-100); Mean Platelet Volume 9.2 fl (7.4-10.4); Monocytes Absolute Auto 0.8 K/mm3 (0.1-0.6); Neutrophils Absolute Auto 13.8 K/mm3 (1.3-6.7); Neutrophils Percent Auto 89.9 % (45.5-73.1); Platelet Count Result 469 k/mm3 (150-375); Red Blood Count 4.19 M/mm3 (4.6-6.20); Red Cell Distribution Width 13.2 % (11.5-14.5); White Blood Count 15.4 K/mm3 (4.5-10.0)
[2023-08-26 08:13] LABS: Alanine Aminotransferase 14 U/L (6-50); Albumin Level 3.5 g/dL (3.5-5.1); Alkaline Phosphatase 80 U/L (38-126); Aspartate Amino Transferase 19 U/L (17-59); Bilirubin,Total 0.3 mg/dL (0.2-1.3); Blood Urea Nitrogen 18 mg/dL (9-20); Calcium 9.9 mg/dL (8.4-10.2); Carbon Dioxide > 40 mmol/L (22-30); Chloride 96 mmol/L (98-107); Estimated CRCL calculation 84 ml/min; Estimated Glomerular Filt Rate > 60; Glucose 131 mg/dL (65-110); Potassium 4.3 mmol/L (3.4-5.0); Sodium 139 mmol/L (137-145)
--- NOTE | 2023-08-26 08:29 | P.PNIM_ITS ---
Progress Note: A&P Assessment and Plan (1) Acute hypoxic on chronic hypercapnic respiratory failure: Code(s): J96.01 - Acute respiratory failure with hypoxia; J96.12 - Chronic respiratory failure with hypercapnia Status: Acute Assessment and Plan: 08/25/2023: * Likely secondary to pneumonia * Patient had increased shortness of breath on the morning of the and was started on 25 L up to flow at the rehab center however he had difficulty maintaining his oxygen sat greater than 90% and was brought in for further evaluation. * Patient started on BiPAP * Continue steroids * Continue DuoNeb * Blood cultures obtained and are pending * Patient was started on azithromycin and Rocephin * Chest x-ray showing pneumonia initially, chest x-ray from yesterday showing improvement * White blood cell count initially 12.7, now down to 10.3 * Continue IMU status and cardiac monitoring * Continue guaifenesin and Flonase * Patient currently on 2 L nasal cannula with SpO2 greater than 95% * Continue to wean oxygen for a saturation greater than 92% * Changed BiPAP setting to 12/6 with a backup rate of 12 and 40% as he is not been able to sleep very well with the pressure setting of 16/8. We will see if he is more comfortable tonight on the settings. 08/26/23: * Will add incentive spirometer today * Continue with PT and OT * Blood cultures are showing no growth preliminary read * Continue to wean oxygen for saturation greater 92% * Will discontinue Rocephin today and start Augmentin * Continue with azithromycin as well (2) Pneumonia: Code(s): J18.9 - Pneumonia, unspecified organism Status: Acute Assessment and Plan: 08/25/2023: * Chest x-ray showing pneumonia * See above plan of care 08/26/23: * No change, see above plan of care (3) Protein calorie malnutrition: Qualifiers: Protein-calorie malnutrition severity: severe Qualified Code(s): E43 - Unspecified severe protein-calorie malnutrition Code(s): E46 - Unspecified protein-calorie malnutrition Status: Acute Assessment and Plan: 08/25/2023: * BMI 22.9, 72.4 kg * Dietitian consult * Severe protein calorie malnutrition with severe subcutaneous fat loss and severe muscle wasting * Glucerna shakes ordered t.i.d. 08/26/23: * No change to current treatment (4) Hyperglycemia: Code(s): R73.9 - Hyperglycemia, unspecified Status: Acute Assessment and Plan: 08/25/2023: * Blood sugars ranging 122-164 * Hemoglobin A1c 6.1 * Bump in blood sugars could be due to use of prednisone * Metformin 1000 mg b.i.d. was ordered 08/26/23: * Blood glucose 131-191 * Will start low-dose sliding today * Accu-Cheks AC and HS * Continue with metformin * Hypoglycemia protocol in place (5) Hypothyroidism: Qualifiers: Hypothyroidism type: unspecified Qualified Code(s): E03.9 - Hypothyroidism, unspecified Code(s): E03.9 - Hypothyroidism, unspecified Status: Acute Assessment and Plan: 08/25/2023: * Synthroid ordered 08/26/23: * No change to current treatment plan Time Spent With Patient Time with patient: 25 - 35 minutes Subjective Date/time seen: 08/26/23 08:29 Interval history: 08/25/23: This is a 67-year-old male who presented to the hospital on 08/22/2023 with complaints of shortness of breath. Workup in hospital included a chest x-ray which showed stable nodules in 1 mid and lower lung zones and airspace opacities at the left lung base consistent with pneumonia. Chest
--- NOTE | 2023-08-26 08:29 | PM.IMPN ---
Progress Note: A&P Assessment and Plan (1) Acute hypoxic on chronic hypercapnic respiratory failure: Code(s): J96.01 - Acute respiratory failure with hypoxia; J96.12 - Chronic respiratory failure with hypercapnia Status: Acute Assessment and Plan: 08/25/2023: Likely secondary to pneumonia Patient had increased shortness of breath on the morning of the and was started on 25 L up to flow at the rehab center however he had difficulty maintaining his oxygen sat greater than 90% and was brought in for further evaluation. Patient started on BiPAP Continue steroids Continue DuoNeb Blood cultures obtained and are pending Patient was started on azithromycin and Rocephin Chest x-ray showing pneumonia initially, chest x-ray from yesterday showing improvement White blood cell count initially 12.7, now down to 10.3 Continue IMU status and cardiac monitoring Continue guaifenesin and Flonase Patient currently on 2 L nasal cannula with SpO2 greater than 95% Continue to wean oxygen for a saturation greater than 92% Changed BiPAP setting to 12/6 with a backup rate of 12 and 40% as he is not been able to sleep very well with the pressure setting of 16/8. We will see if he is more comfortable tonight on the settings. 08/26/23: Will add incentive spirometer today Continue with PT and OT Blood cultures are showing no growth preliminary read Continue to wean oxygen for saturation greater 92% Will discontinue Rocephin today and start Augmentin Continue with azithromycin as well (2) Pneumonia: Code(s): J18.9 - Pneumonia, unspecified organism Status: Acute Assessment and Plan: 08/25/2023: Chest x-ray showing pneumonia See above plan of care 08/26/23: No change, see above plan of care (3) Protein calorie malnutrition: Qualifiers: Protein-calorie malnutrition severity: severe Qualified Code(s): E43 - Unspecified severe protein-calorie malnutrition Code(s): E46 - Unspecified protein-calorie malnutrition Status: Acute Assessment and Plan: 08/25/2023: BMI 22.9, 72.4 kg Dietitian consult Severe protein calorie malnutrition with severe subcutaneous fat loss and severe muscle wasting Glucerna shakes ordered t.i.d. 08/26/23: No change to current treatment (4) Hyperglycemia: Code(s): R73.9 - Hyperglycemia, unspecified Status: Acute Assessment and Plan: 08/25/2023: Blood sugars ranging 122-164 Hemoglobin A1c 6.1 Bump in blood sugars could be due to use of prednisone Metformin 1000 mg b.i.d. was ordered 08/26/23: Blood glucose 131-191 Will start low-dose sliding today Accu-Cheks AC and HS Continue with metformin Hypoglycemia protocol in place (5) Hypothyroidism: Qualifiers: Hypothyroidism type: unspecified Qualified Code(s): E03.9 - Hypothyroidism, unspecified Code(s): E03.9 - Hypothyroidism, unspecified Status: Acute Assessment and Plan: 08/25/2023: Synthroid ordered 08/26/23: No change to current treatment plan Time Spent With Patient Time with patient: 25 - 35 minutes Subjective Date/time seen: 08/26/23 08:29 Interval history: 08/25/23: This is a 67-year-old male who presented to the hospital on 08/22/2023 with complaints of shortness of breath. Workup in hospital included a chest x-ray which showed stable nodules in 1 mid and lower lung zones and airspace opacities at the left lung base consistent with pneumonia. Chest x-ray yesterday shown improvement of bilateral lower lobe pneumonia. Initial labs showed a white blood cell count of 12.7, hemoglobin 11.8, platelet count 634, sodium 134, chloride 95, blood glucose ranging 152-201, initial lactate was 1.6, trop was negative, procalcitonin 0.1. Patient was started on azithromycin and Rocephin. Of note patient was recently admitted and discharged from [facility] on July 10 after having RSV and pneumonia causi
[2023-08-26 08:38] LABS: Glucose Point of Care 124 mg/dl (65-105)
[2023-08-26] MEDS: ENOXAPARIN 40 MG/0.4 ML SYRINGE SUB-Q (08:52)
[2023-08-26] MEDS: ATORVASTATIN 40 MG TABLET PO (08:52)
[2023-08-26] MEDS: METOPROLOL TARTRATE 6.25 MG TABLET PO ×2 (08:52→21:02)
[2023-08-26] MEDS: predniSONE 20 MG TABLET 40 MG PO ×2 (08:53→17:01)
[2023-08-26] MEDS: AZITHROMYCIN 250 MG TABLET PO (08:53)
[2023-08-26] MEDS: guaiFENesin 12 HR 600 MG TABCR PO ×2 (08:53→21:02)
[2023-08-26] MEDS: FOLIC ACID 1 MG TABLET PO (08:53)
[2023-08-26] MEDS: metFORMIN HCL 500 MG TABLET 1000 MG PO ×2 (08:53→17:02)
[2023-08-26 12:03] LABS: Glucose Point of Care 123 mg/dl (65-105)
[2023-08-26] MEDS: FERROUS SULFATE 325 MG TABLET DR PO (12:05)
[2023-08-26 16:48] LABS: Glucose Point of Care 191 mg/dl (65-105)
[2023-08-26 20:26] LABS: Glucose Point of Care 217 mg/dl (65-105)
[2023-08-26] MEDS: INSULIN ASPART (*BKC) 100 UNITS/ML SUB-Q (21:02)
[2023-08-26] MEDS: AMOXICILLIN/CLAVULANATE K 875-125 MG TAB 1 TABLET PO (21:02)
[2023-08-26] MEDS: MELATONIN 3 MG TABLET PO (21:02)
[2023-08-27] VITALS (38 sets, daily range): BP systolic 108–156; BP diastolic 67–107; PULSE 84–132; RESP 18–29; TEMP 35.9–36.5; O2SAT 90–97
[2023-08-27] MEDS: IPRATROPIUM BR 0.02% INH SOLN 0.5 MG/2.5 ML VIAL INHALATION ×4 (02:13→20:40)
[2023-08-27] MEDS: LEVALBUTEROL NEB 1.25 MG/3 ML INHALATION ×4 (02:13→20:40)
[2023-08-27 05:06] LABS: Basophils Absolute Auto 0.1 K/mm3 (0.0-0.1); Basophils Percent Auto 0.4 % (0.2-1.2); Hematocrit 36.9 % (42.0-52.0); Hemoglobin 11.1 g/dL (14.0-18.0); Immature Granulocyte Absolute 0.06 K/mm3 (0.00-0.031); Immature Granulocyte Percent A 0.4 % (0-0.5); Lymphocytes Absolute Auto 0.66 K/mm3 (0.9-3.2); Mean Corpuscular HGB Conc 30.1 g/dl (32-36); Mean Corpuscular Hemoglobin 27.5 pg (26-34); Mean Corpuscular Volume 91.6 fl (80-100); Mean Platelet Volume 9.3 fl (7.4-10.4); Monocytes Absolute Auto 0.6 K/mm3 (0.1-0.6); Monocytes Percent Auto 3.8 % (2.6-8.5); Neutrophils Percent Auto 91.4 % (45.5-73.1); Platelet Count Result 383 k/mm3 (150-375); Red Blood Count 4.03 M/mm3 (4.6-6.20); Red Cell Distribution Width 13.2 % (11.5-14.5); White Blood Count 16.4 K/mm3 (4.5-10.0)
[2023-08-27 05:25] LABS: Alanine Aminotransferase 10 U/L (6-50); Albumin Level 3.3 g/dL (3.5-5.1); Alkaline Phosphatase 88 U/L (38-126); Aspartate Amino Transferase 18 U/L (17-59); Bilirubin,Total 0.4 mg/dL (0.2-1.3); Blood Urea Nitrogen 20 mg/dL (9-20); Calcium 10.2 mg/dL (8.4-10.2); Carbon Dioxide > 40 mmol/L (22-30); Chloride 97 mmol/L (98-107); Estimated CRCL calculation 73 ml/min; Estimated Glomerular Filt Rate > 60; Glucose 125 mg/dL (65-110); Potassium 5.7 mmol/L (3.4-5.0); Sodium 139 mmol/L (137-145)
[2023-08-27] MEDS: LEVOTHYROXINE SODIUM 112 MCG TABLET PO (05:47)
[2023-08-27 07:57] LABS: Glucose Point of Care 105 mg/dl (65-105)
[2023-08-27] MEDS: FLUTICASONE/UMECLIDIN/VILANTER 100-62.5-25 MCG ELLIPTA 1 PUFF INHALATION (08:28)
[2023-08-27] MEDS: SODIUM ZIRCONIUM CYCLOSILICATE 10 GM POWD.PACK PO (08:37)
--- NOTE | 2023-08-27 09:07 | PCPTNOTE ---
per RN, pt is not appropriate for physical therapy evaluation at this time, pt is satting in the 70's while lying in bed, will follow
[2023-08-27] MEDS: FOLIC ACID 1 MG TABLET PO (10:01)
[2023-08-27] MEDS: ATORVASTATIN 40 MG TABLET PO (10:01)
[2023-08-27] MEDS: metFORMIN HCL 500 MG TABLET 1000 MG PO ×2 (10:01→18:07)
[2023-08-27] MEDS: guaiFENesin 12 HR 600 MG TABCR PO ×2 (10:01→20:07)
[2023-08-27] MEDS: AZITHROMYCIN 250 MG TABLET PO (10:01)
[2023-08-27] MEDS: METOPROLOL TARTRATE 6.25 MG TABLET PO (10:02)
[2023-08-27] MEDS: predniSONE 20 MG TABLET 40 MG PO (10:02)
[2023-08-27] MEDS: ENOXAPARIN 40 MG/0.4 ML SYRINGE SUB-Q (10:02)
[2023-08-27] MEDS: AMOXICILLIN/CLAVULANATE K 875-125 MG TAB 1 TABLET PO (10:02)
--- NOTE | 2023-08-27 10:21 | PC.NURSE ---
Following the patients 0800 breathing tx pt desated to 77%. Evaluated pt, no distress, pt reports no shortness of breath. Turned pt's oxygen from 4L to 6L, pt did not recover. Turned pt up to 10L, SpO2 went to 82%, turned pt up to 15L and called respiratory to the room. RT put pt on Airvo at 40L 60%, pt maintaining Sp02 at 91-92%.
[2023-08-27 11:41] LABS: Glucose Point of Care 160 mg/dl (65-105)
--- NOTE | 2023-08-27 11:59 | PM.CNPUL ---
Assessment and Plan Assessment and plan (1) COPD (chronic obstructive pulmonary disease): Code(s): J44.9 - Chronic obstructive pulmonary disease, unspecified Status: Acute Assessment and Plan: Patient with tobacco use, carries a diagnosis of COPD and was told his recent PFT showed an obstruction was started on trilogy and albuterol. He has hypoxemic and hypercarbic respiratory failure And has been using BiPAP intermittently at night throughout this hospitalization. 08/27/23: Currently the patient has no wheezes, no change in his sputum production. he was started on steroids on 08/21, today is day 5. Plan: I will discontinue prednisone after today. I will continue levalbuterol and ipratropium nebulizers Q 6 hours. The patient is on guaifenesin 600 mg p.o. q.12 hours and I will continue this. I will check a chest x-ray and CT scan looking for mucus plugging. Of note, the patient has a very poor cough at the bedside. (2) Pneumonia: Code(s): J18.9 - Pneumonia, unspecified organism Status: Acute Assessment and Plan: Patient reported sleep developed RSV pneumonia on 08/05/2023 and was treated at [facility]. Patient has a positive RSV study on 08/14/2023 from our facility. He has a CT scan that demonstrated tree-in-bud infiltrates consistent with RSV bronchiolitis on 08/14/2023 in in addition he had dense consolidation in the left lower lobe with an elevated left hemidiaphragm. chest x-ray on 08/21 with continued elevation of the left hemidiaphragm with unchanged bibasilar infiltrates compared to 08/14/2023. Chest x-ray on 08/14/20142025 with less elevation of the left hemidiaphragm and improved infiltrates bibasilar. Patient has been treated with ceftriaxone and azithromycin started on 08/21 and change to Augmentin on 08/25. 08/26: he is afebrile. White blood cell count is increased to 16.4, he has no increased sputum, no purulence sputum, no chest pains and is in no respiratory distress. Plan: I will order procalcitonin. I will check a portable chest x-ray and he is scheduled for CT angiogram of the chest This will also allow us to reassess his lung infiltrates. will continue current antibiotics at this time. I will check a COVID, RSV and influenza swab. (3) Acute hypoxic on chronic hypercapnic respiratory failure: Code(s): J96.01 - Acute respiratory failure with hypoxia; J96.12 - Chronic respiratory failure with hypercapnia Status: Acute Assessment and Plan: Patient with tobacco use, carries a diagnosis of COPD and was told his recent PFT showed an obstruction was started on trilogy and albuterol. He has hypoxemic and hypercarbic respiratory failure And has been using BiPAP intermittently at night throughout this hospitalization. . 08/27/23: Patient had an acute worsening in his hypoxic respiratory failure this morning 15 minutes after he did and attempt to sit up in a chair. He was comfortable in no respiratory distress and currently is requiring Airvo 40 L and 65% FiO2 with saturations 93%. Etiology of hypoxemic respiratory failure includes pulmonary embolism, aspiration, mucus plugging, and pneumothorax. Plan: CT angiogram of the chest has been ordered. There has been no witnessed aspiration by the patient or the bedside nurse. The patient is refusing a bedside swallow. The patient has a poor cough and may have mucus plugging. Chest x-ray and CT scan have been ordered. I will obtain an ABG to assess for hypercarbic respiratory failure. The nurse told me he refused BiPAP last night but he tells me he will wear BiPAP if he needs it. He is do not intubate. History of Present Illness History of Present Illness Consult date: 08/27/23 Chief complaint: Respiratory failure, Pneumonia Narrative: 08/27/2023: This is a new pulmonary consult for hypoxemic respiratory failure. 08/22/23 HPI: 67-year-old male with a
[2023-08-27 13:04] LABS: NT Pro B Type Natriuretic Pept 310 pg/mL (19.9-100)
[2023-08-27 13:11] LABS: Potassium 4.5 mmol/L (3.4-5.0)
[2023-08-27 13:12] LABS: Procalcitonin 0.1 ng/mL
--- NOTE | 2023-08-27 13:41 | PM.IMPN ---
Progress Note: A&P Assessment and Plan (1) Acute hypoxic on chronic hypercapnic respiratory failure: Code(s): J96.01 - Acute respiratory failure with hypoxia; J96.12 - Chronic respiratory failure with hypercapnia Status: Acute (2) Pneumonia: Code(s): J18.9 - Pneumonia, unspecified organism Status: Acute (3) Protein calorie malnutrition: Qualifiers: Protein-calorie malnutrition severity: severe Qualified Code(s): E43 - Unspecified severe protein-calorie malnutrition Code(s): E46 - Unspecified protein-calorie malnutrition Status: Acute (4) Hyperglycemia: Code(s): R73.9 - Hyperglycemia, unspecified Status: Acute (5) Hypothyroidism: Qualifiers: Hypothyroidism type: unspecified Qualified Code(s): E03.9 - Hypothyroidism, unspecified Code(s): E03.9 - Hypothyroidism, unspecified Status: Acute Plan 67-year-old male with a past medical history of RSV 08/05/2023 throat cancer, prostate cancer, BPH, chronic hypercapnic respiratory (denies formal diagnosis of COPD), former heavy tobacco use, chronic protein malnutrition who presented back to the hospital from [place] [facility] due to worsening respiratory failure 1. Acute on chronic respiratory failure: Has been already on treatment with antibiotic for multifocal pneumonia Worsening respiratory status, currently on Airvo Pulmonary has been consulted Await CT chest with PE protocol Continue with [id number] bronchodilators Status post completion of azithromycin Continue with Augmentin for now Finished steroids Will change antibiotic based on CT scan results Follow-up leukocytosis Patient has been refusing any kind of speech evaluation to rule out aspiration as etiology He very well understands that constant possible aspiration will lead to worsening respiratory status 2. Hyperkalemia: Received 1 dose of Lokelma this morning Repeat potassium is within normal limits 3. Protein calorie malnutrition: Encourage p.o. intake if possible 4. Diabetes mellitus: Blood glucose checked t.i.d. a.c. and HS Continue with sliding scale insulin Hopefully hyperglycemia will improve with stopping the steroids for now 5. DVT prophylaxis: Lovenox 6. Code status: DNR 7. Disposition: Pending improvement, poor long-term prognosis Time Spent With Patient Time with patient: 15 - 25 minutes Subjective Date/time seen: 08/27/23 13:41 Interval history: Patient is on heated high-flow Concern for aspirating saliva/food Review of Systems Review of Systems: All systems reviewed & are unremarkable except as noted in HPI and below Exam Narrative: General: In no acute distress, cachectic Head: atraumatic, no encephalopathy Eyes: EOMI, PERRLA, sclera clear ENT: moist mucous membranes, nasal passages clear Neck: supple, no JVD, no adenopathy, trachea midline Cardiac: Normal S1 and S2. No murmur, gallops or friction rubs, peripheral pulses intact. Respiratory: Decreased breath sounds with coarse crackles, currently on heated high-flow/airvo Gastrointestinal: soft, non-distended, non-tender, normoactive bowel sounds. : voiding without difficulty. Extremities: moves all extremities well, no edema, good ROM, strength 5/5 Skin: clean, dry, intact. No wounds or lesions. Neuro: Alert and oriented x4, cranial nerves intact, no neuro deficits. Psych: normal mood, flat affect, interactive Objective Data Vital Signs Vital Signs: Vital Signs - 24 hr 08/26/23 14:04 08/26/23 14:16 08/26/23 15:30 Temperature 97.4 F L Pulse Rate 120 H 115 H 120 H Respiratory Rate 20 20 26 H Blood Pressure 104/76 Pulse Oximetry 90 Oxygen Delivery Oxygen Flow Rate Fraction of Inspired Oxygen 08/26/23 14:00 08/26/23 16:00 08/26/23 16:00 Temperature Pulse Rate 120 H 123 H 123 H Respiratory Rate 26 H Blood Pressure Pulse Oximetry 90 Oxygen Delivery High Flow Nasal Cannula Oxygen Flow R
[2023-08-27 14:17] LABS: Alveolar/Arterial O2 Gradient 325.6 mmHg; Base Excess ABG 6.5 mEq/l (+/-2.0); Fractional Inspired Oxygen 65 %; HCO3 ABG 34.2 mEq/l (22.0-26.0); Oxygen Content ABG 15.6 %vol (16.0-22.0); Oxygen Saturation ABG 91.6 % (95.0-100.0); Oxyhemoglobin 90.5 % THb (90.0-100.0); PO2 FiO2 Ratio Arterial Blood 1.03 %; Total Hemoglobin 12.2 g/dL (12.0-18.0); pH ABG 7.338 (7.350-7.450)
[2023-08-27 14:21] LABS: Device HIGH FLOW THERAPY; PCO2 ABG 65.2 mmHg (35.0-45.0); Site Drawn LEFT BRACHIAL
--- NOTE | 2023-08-27 14:47 | PCCCNOTE ---
On 08/27/23, the student, Comfort Brenner, provided care and completed [facility] documentation on this patient. I have reviewed the student's documentation and agree with the findings.
[2023-08-27] MEDS: FERROUS SULFATE 325 MG TABLET DR PO (15:10)
--- NOTE | 2023-08-27 15:58 | PC.NURSE ---
Notified Dr. Wang of pt's HR sustaining high 120's-130's. will put in order for IV metoprolol X1
[2023-08-27] MEDS: METOPROLOL TARTRATE INJ 5 MG/5 ML VIAL IV PUSH (16:03)
--- NOTE | 2023-08-27 16:23 | PC.NURSE ---
called to patients room, pt feeling short of breath. No S/S of distress, pt tachypneic, placed patient on bipap on original settings 04/15 rt 12 40% RR 34 HR 112.
[2023-08-27 16:25] LABS: Glucose Point of Care 182 mg/dl (65-105)
--- NOTE | 2023-08-27 16:30 | PC.NURSE ---
pt already asking to be taken off of the bipap and placed back on airvo.
--- NOTE | 2023-08-27 16:42 | PC.NURSE ---
Dr. Romo called asking this RN to update patient on his CT scan and CXR results. Dr. Romo is recommending this patient be transferred to another facility. This RN went to the patient's room to explain this, patient stated he did not want to be transferred or have surgery. Patient stated this in front of myself and the RT, [place]. I explained to the patient if he was not interested that was his own choice. Discussed with patient that hospice might be an option if he doesn't want any treatment. Patient stated hospice is what he wants. Notified Dr. Romo, he stated he was coming to talk to the patient.
[2023-08-27] MEDS: METOPROLOL TARTRATE INJ 5 MG/5 ML VIAL (17:59)
--- NOTE | 2023-08-27 18:50 | PC.NURSE ---
Dr. Wang notified of patients recent stat CXR
--- NOTE | 2023-08-27 18:59 | PM.TDS ---
Transfer Discharge Sum: Prov Provider Date of admission: 08/22/23 21:49 Primary care physician: PHYSICIAN NOT ON STAFF Admitting clinician: Zulema Parra DO Consults: 08/27/23 Consult to Physician Routine Comment: called Dr. Romo with consult information Consulting Provider: Richardson Romo Reason for consultation: acut hypoxic resp failure Has provider been notified: Yes Attending physician on discharge: Shilpa Wang Discharging clinician: Shilpa Wang Receiving physician/facility: [facility] DS: Admitting Diagnosis Discharge Date 08/27/23 Admitting Diagnosis Acute on Chronic Resp Failure DS: Discharge Diagnosis Discharge Diagnosis (1) COPD (chronic obstructive pulmonary disease): Code(s): J44.9 - Chronic obstructive pulmonary disease, unspecified Status: Acute (2) Acute hypoxic on chronic hypercapnic respiratory failure: Code(s): J96.01 - Acute respiratory failure with hypoxia; J96.12 - Chronic respiratory failure with hypercapnia Status: Acute (3) Pneumothorax, left: Code(s): J93.9 - Pneumothorax, unspecified Status: Acute Transfer Discharge Sum: Med Medications Active and Home Medications: Home Medications albuterol sulfate 90 mcg/actuation aerosol inhaler 2 puff inhalation Q4H PRN Wheezing 08/12/23 [History Confirmed 08/23/23] levothyroxine 112 mcg tablet 112 mcg PO DAILY 08/12/23 [History Confirmed 08/23/23] metformin 1,000 mg tablet 1,000 mg PO BID 08/12/23 [History Confirmed 08/23/23] atorvastatin 40 mg tablet 40 mg PO DAILY 08/23/23 [History Confirmed 08/23/23] enoxaparin 40 mg/0.4 mL subcutaneous syringe 40 mg subcut DAILY 08/23/23 [History Confirmed 08/23/23] ferrous sulfate 325 mg (65 mg iron) tablet 325 mg PO DAILY 08/23/23 [History Confirmed 08/23/23] fluticasone fur. 100 mcg-umeclid 62.5 mcg-vilant 25 mcg inhalat.powder 1 inh inhalation DAILY 08/23/23 [History Confirmed 08/23/23] folic acid 1 mg tablet 1 mg PO DAILY 08/23/23 [History Confirmed 08/23/23] guaifenesin 600 mg tablet, extended release 12 hr See Rx Instructions .Route .COMPLEX 08/23/23 [History Confirmed 08/23/23] levalbuterol HCl 1.25 mg/3 mL solution for nebulization 1.25 mg inhalation Q4H 08/23/23 [History Confirmed 08/23/23] melatonin 3 mg tablet 3 mg PO HS 08/23/23 [History Confirmed 08/23/23] metoprolol tartrate 25 mg tablet 3.125 mg PO BID 08/23/23 [History Confirmed 08/23/23] prednisone 20 mg tablet 20 mg PO DAILY 08/23/23 [History Confirmed 08/23/23] Active Medications Acetaminophen (Acetaminophen 325 Mg Tablet) 650 mg PO Q4H PRN PRN Reason: Mild Pain (1-3) or Fever Atorvastatin Calcium (Atorvastatin 40 Mg Tablet) 40 mg PO DAILY [facility] Last Admin: 08/27/23 10:01 Dose: 40 mg Dextrose (Dextrose 50% 25 Gm/50 Ml Syringe) 12.5 gm IV PUSH PRN PRN; Protocol PRN Reason: Hypoglycemia Enoxaparin Sodium (Enoxaparin 40 Mg/0.4 Ml Syringe) 40 mg SUB-Q DAILY [facility] Last Admin: 08/27/23 10:02 Dose: 40 mg Ferrous Sulfate (Ferrous Sulfate [address]) 325 mg PO DAILY@1200 [facility] Last Admin: 08/27/23 15:10 Dose: 325 mg Fluticasone/Umeclidinium/Vilanterol (Fluticasone/Umeclidin/Vilanter 100-62.5-25 Mcg Ellipta) 1 puff INHALATION DAILY [facility] Last Admin: 08/27/23 08:28 Dose: 1 puff Folic Acid (Folic Acid 1 Mg Tablet) 1 mg PO DAILY [facility] Last Admin: 08/27/23 10:01 Dose: 1 mg Glucagon (Glucagon For Inj 1 Mg Vial) 1 mg IM PRN PRN; Protocol PRN Reason: Hypoglycemia Glucose (Glucose Oral Gel 15 Gm Of Glucse In 37.5 Gm Tube) 15 gm PO PRN PRN; Protocol PRN Reason: Hypoglycemia Guaifenesin (Guaifenesin 12 Hr 600 Mg Tabcr) 600 mg PO Q12HR [facility] Last Admin: 08/27/23 10:01 Dose: 600 mg Dextrose (Dextrose 5% 1,000 Ml) 1,000 mls @ 100 mls/hr IVPB PRN PRN; Protocol PRN Reason: Hypoglycemia Cefepime HCl (Maxipime 1 Gm/Ns 50 Ml) 1 gm in 50 mls @ 100 mls/hr IVPB Q8H JAUN Vancomycin HCl (Vancomycin 1,000 Mg/Ns 250 Ml) 1,000 mg in 250 mls @ 250 mls/hr IVPB Q18H JAUN Vancomycin HCl (Van
[2023-08-27] MEDS: CEFEPIME 1 GM/NS 50 ML 1 GM/50 ML BAG IVPB (19:49)
--- NOTE | 2023-08-27 19:49 | PC.NURSE ---
Report called to JUSTYN Silva at [facility]
[2023-08-27] MEDS: VANCOMYCIN 1,250 MG/NS 250 ML 1,250 MG/250 ML BAG 166.67 MG IVPB (19:50)
[2023-08-27 19:53] LABS: Glucose Point of Care 179 mg/dl (65-105)
[2023-08-27] MEDS: METOPROLOL TARTRATE 25 MG TABLET PO (20:06)
[2023-08-27] MEDS: MELATONIN 3 MG TABLET PO (20:07)
[2023-08-27 20:15] LABS: Influenza A QL RT-PCR Negative (Negative); Influenza B QL RT-PCR Negative (Negative); RSV RNA, RT-PCR Positive (Negative); SARS-CoV-2 RNA PCR Negative (Negative)
--- NOTE | 2023-08-27 20:37 | PC.NURSE ---
Notified JUSTYN Green at [facility] of positive RSV result - she will pass along to nurse receiving patient JUSTYN Silva
[2023-08-27 21:22] LABS: MRSA (PCR) NOT DETECTED (NOT DETECTE)
== END 2023-08-27 22:48 | disposition short-term general hospital (02) | DRG 193 ==
LOC: ANHED 21:58 → ANHIMU 23:04
PROVIDERS: Internal Medicine; Internal Medicine Pulmonary Disease; Nurse Practitioner Acute Care; Admitting Provider Internal Medicine; Emergency Provider Emergency Medicine; Visit Provider Internal Medicine
DX: J18.9 Pneumonia, unspecified organism (principal); E43 Unspecified severe protein-calorie malnutrition; J96.22 Acute and chronic respiratory failure with hypercapnia; J96.21 Acute and chronic respiratory failure with hypoxia; Z68.1 Body mass index [BMI] 19.9 or less, adult; J93.9 Pneumothorax, unspecified; J44.0 Chronic obstructive pulmonary disease with (acute) lower respiratory infection; J44.1 Chronic obstructive pulmonary disease with (acute) exacerbation; E78.5 Hyperlipidemia, unspecified; E87.5 Hyperkalemia; E11.65 Type 2 diabetes mellitus with hyperglycemia; E03.9 Hypothyroidism, unspecified; I10 Essential (primary) hypertension; N40.0 Benign prostatic hyperplasia without lower urinary tract symptoms; Z66 Do not resuscitate; Z20.822 Contact with and (suspected) exposure to COVID-19; Z79.84 Long term (current) use of oral hypoglycemic drugs; Z87.891 Personal history of nicotine dependence; Z85.21 Personal history of malignant neoplasm of larynx; Z85.46 Personal history of malignant neoplasm of prostate; Z92.3 Personal history of irradiation; Z92.21 Personal history of antineoplastic chemotherapy
CPT/HCPCS: 36415; 36600; 71045; 71046; 71275; 80048; 80053; 82375; 82805; 82948; 83050; 83605; 83735; 83880; 84132; 84145; 84484; 85025; 85027; 87040; 87637; 87641; 93005; 93306; 94002; 94003; 94640; 94660; 97165; 99285; A9270; J0692; J0696; J1100; J1650; J1815; J2919; J3370; J7030; J7512; Q9967